=== PATIENT | male | born 1960 | race Caucasian/White ===

== ENCOUNTER 2016-06-12 02:20 | Observation (INO) | payer MEDICARE, MEDICAID ==
[2016-06-12] MEDS ORDERED: METHYLPREDNISOLONE INJ 125 MG/2 ML SDV IV ONE (02:39)
--- NOTE | 2016-06-12 03:00 | ER Document Report ---
ED General - General Mode of Arrival: Medic Information source: Patient, Emergency Med Personnel TRAVEL OUTSIDE OF THE [place] IN LAST 30 DAYS: No - HPI Patient complains to provider of: Swelling to the left cheek, upper lip, and tongue Onset: Just prior to arrival Associated symptoms: Other - see above <TIFFANIE FRAZIER - Last Filed: 06/12/16 03:48> <ALEXIS CELESTE - Last Filed: 06/12/16 07:38> <ANGELO BROCK - Last Filed: 06/18/16 02:08> - General Chief Complaint: Facial Swelling Stated Complaint: LIP,CHEEK SWELLING Notes: 56 year old male with history of a stroke and hypertension presents to the ED via EMS after having swelling to the left cheek, upper lip, and tongue that started just prior to arrival. EMS states that the patient's symptoms started at approximately 0200. Patient was at 99% on room air. Patient is on Lisinopril 10mg and states that he has been taking it for a while now. Patient additionally states that he has a itching sensation, but it is chronic. A comprehensive HPI is unobtainable secondary to the patient's inability to talk coherently. (TIFFANIE FRAZIER) - Related Data Allergies/Adverse Reactions: lisinopril Allergy (Verified 06/12/16 19:26) Angioneurotic Edema Home Medications: Current Home Medications Acetaminophen [Tylenol Extra Strength 500 mg Tablet] 500 mg PO Q4HP PRN [History] Chlorhexidine Gluconate [Periogard 0.12% Oral Rinse 15 ml] 10 ml PO TIDHS PRN [History] Cyclobenzaprine HCl [Flexeril 10 mg Tablet] 10 mg PO TID 06/12/16 [History] Escitalopram Oxalate [Lexapro 10 mg Tablet] 10 mg PO DAILY 06/12/16 [History] Felodipine [Felodipine ER] 10 mg PO DAILY 06/12/16 [History] Guaifenesin [Robitussin Syrup 200 mg/10 ml Ud Cup] 10 ml PO HSP PRN 06/12/16 [ History] Loperamide HCl [Loperamide] 2 mg PO QIDP PRN 06/12/16 [History] Magnesium Hydroxide [Milk of Magnesia 30 ml Udcup] 30 ml PO HSP PRN 06/12/16 [ History] Meloxicam [Mobic 7.5 mg Tablet] 7.5 mg PO DAILY 06/12/16 [History] Methylphenidate HCl [Methylphenidate ER] 10 mg PO DAILY 06/12/16 [History] Neomycin Ramirez/Bacitrac Zn/Poly [Triple Antibiotic Ointment] 1 applic TOP DAILYP PRN 06/12/16 [History] Omeprazole 20 mg PO DAILY 06/12/16 [History] Simvastatin [Zocor 20 mg Tablet] 60 mg PO QHS 06/12/16 [History] Past Medical History - General Information source: Patient - Social History Smoking Status: Current Every Day Smoker Family History: Reviewed & Not Pertinent Patient has suicidal ideation: No - Past Medical History Cardiac Medical History: Reports: Hx Hypertension Neurological Medical History: Reports: Hx Cerebrovascular Accident, Hx Seizures Surgical Hx: Negative <TIFFANIE FRAZIER - Last Filed: 06/12/16 03:48> Review of Systems - Review of Systems Constitutional: No symptoms reported EENT: No symptoms reported Cardiovascular: No symptoms reported Respiratory: No symptoms reported Gastrointestinal: No symptoms reported Genitourinary: No symptoms reported Male Genitourinary: No symptoms reported Musculoskeletal: No symptoms reported Skin: See HPI, Other - swelling to the left cheek, upper lip, and tongue. Hematologic/Lymphatic: No symptoms reported Neurological/Psychological: No symptoms reported -: Yes All other systems reviewed and negative <TIFFANIE FRAZIER - Last Filed: 06/12/16 03:48> Physical Exam - General General appearance: Alert In distress: None - HEENT Head: Normocephalic, Atraumatic Eyes: Normal Extraocular movements intact: Yes Pupils: PERRL Mouth/Lips: Angioedema - left greater than right. No: Normal - Respiratory Respiratory status: No respiratory distress Breath sounds: Normal - Cardiovascular Rhythm: Regular Heart sounds: Normal auscultation - Abdominal Inspection: Normal - Back Back: Normal - Extremities General upper extremity: Normal inspection, Normal ROM General lower extremity: Normal inspection, Normal ROM - Neurological Neuro grossly intact: Yes Cognition: Normal Orientation: AAOx4 [place] Coma Scale Eye Opening: Spontaneous [place] Coma Scale Verbal: Oriented Anu Coma Scale Motor: Obeys Commands [place] Coma Scale Total: 15 Speech: Normal - Psychological Associated symptoms: Normal affect, Normal mood - Skin Skin Temperature: Warm Skin Moisture: Dry Skin Color: Normal <TIFFANIE FRAZIER - Last Filed: 06/12/16 03:48> <ALEXIS CELESTE - Last Filed: 06/12/16 07:38> - HEENT Pharynx: Normal. No: Erythema, Exudate, Tonsillar hypertrophy <ANGELO BROCK - Last Filed: 06/18/16 02:08> - Vital signs Vitals: Resp BP Pulse Ox 16 147/96 H 94 06/12/16 02:30 06/12/16 02:30 06/12/16 02:30 (ALEXIS CELESTE) (ANGELO BROCK) Course <TIFFANIE FRAZIER - Last Filed: 06/12/16 03:48> <ALEXIS CELESTE - Last Filed: 06/12/16 07:38> - Laboratory Result Diagrams: 06/12/16 08:40 06/12/16 08:40 <ANGELO BROCK - Last Filed: 06/18/16 02:08> - Re-evaluation Re-evalutation: Patient was checked out to me by Dr. Brock with the plan that we would monitor him for 4 hours. If his edema did not worsened and he could go home. She informed me that he initially only has edema to the left upper lip and some to left face. Reevaluation patient's now has some edema across the entire upper lip. Also has slight edema over the left lower lip. The nurse does say that this does appear worse than what it was before. Yhe edema is actually worsening and not improving think it's appropriate to admit the patient. I will give the patient fresh frozen plasma being that this is most likely RICARDO inhibitor, bradycardia, and induced angioedema. He does not have any pharyngeal involvement. No evidence of impending airway compromise. He is handling secretions fine and has no stridor or difficulty breathing. I do not think he requires prophylactic intubation at this time. 06/12/16 06:18 (ALEXIS CELESTE) 06/12/16 03:55 Patient is a 56-year-old male who comes in with angioedema of his upper lip. L>R , likely from his lisinopril. No involvement of his tongue or oropharynx. Patient has been monitored here in the emergency department for the last hour and half and his symptoms have not gotten worse. Patient is signed out to Dr. Celeste at 0400 with stable angioedema. He is to stop taking lisinopril. (ANGELO BROCK) - Vital Signs Vital signs: Temp Pulse Resp BP Pulse Ox 97.9 F 100 19 143/83 H 94 06/13/16 07:45 06/13/16 07:45 06/13/16 07:45 06/13/16 07:45 06/13/16 10:18 (ALEXIS CELESTE) (ANGELO BROCK) - Transfer of Care Notes: 06/12/16 07:39 I spoke with the hospitalist, Dr. Tang, who agrees come evaluate the patient for admission. (ALEXIS CELESTE) Discharge <TIFFANIE FRAZIER - Last Filed: 06/12/16 03:48> - Discharge Admitting Provider: Hospitalist <ALEXIS CELESTE - Last Filed: 06/12/16 07:38> - Discharge Admitting Provider: Hospitalist Unit Admitted: IMCU <ANGELO BROCK - Last Filed: 06/18/16 02:08> - Discharge Clinical Impression: Angioedema Qualifiers: Encounter type: initial encounter Qualified Code(s): T78.3XXA - Angioneurotic edema, initial encounter Condition: Good Disposition: ADMITTED OBSERVATION Scribe Attestation: 06/18/16 02:07 I personally performed the services described in the documentation, reviewed and edited the documentation which was dictated to the scribe in my presence, and it accurately records my words and actions. (ANGELO BROCK) Scribe Documentation - Scribe Written by Scribyung:: Aj Espino, 06/12/2015 03:32 acting as scribe for :: Usha <TIFFANIE FRAZIER - Last Filed: 06/12/16 03:48>
[2016-06-12] MEDS ORDERED: NORMAL SALINE 250 ML IV PRN (06:16)
[2016-06-12] MEDS ORDERED: ACETAMINOPHEN 325 MG TABLET PO PRN (08:06)
[2016-06-12] MEDS ORDERED: ONDANSETRON HCL INJ/PF 4 MG/2 ML SDV IV PRN (08:12)
[2016-06-12] MEDS ORDERED: DIPHENHYDRAMINE HCL 50 MG/ML VIAL IV STA (08:13)
[2016-06-12] MEDS ORDERED: METHYLPREDNISOLONE INJ 40 MG/1 ML SDV IV SCH (08:15)
[2016-06-12] MEDS ORDERED: FAMOTIDINE INJ/PF 20 MG/2 ML SDV IV ONE (08:30)
[2016-06-12] MEDS ORDERED: METHYLPREDNISOLONE INJ 40 MG/1 ML SDV IV ONE (08:30)
[2016-06-12 09:03] LABS: ABSOLUTE MONOCYTES (AUTO) 0.1 10^3/uL (0.1-1.4); ABSOLUTE NEUT (AUTO) 8.8 10^3/uL (1.7-8.2); BASOPHILS % (AUTO) 0.3 % (0-2); EOSINOPHILS % (AUTO) 0.4 % (0-6); HEMATOCRIT 45.5 % (37.9-51.0); HEMOGLOBIN 14.8 g/dL (13.5-17.0); HGB HCT DIFFERENCE -1.1; LYMPHOCYTES % (AUTO) 9.8 % (13-45); MEAN CORPUSCULAR HEMOGLOBIN 30.5 pg (27.0-33.4); MEAN CORPUSCULAR HGB CONC 32.6 g/dL (32.0-36.0); MEAN CORPUSCULAR VOLUME 94 fl (80-97); MONOCYTES % (AUTO) 1.2 % (3-13); RED BLOOD COUNT 4.86 10^6/uL (4.35-5.55); RED CELL DISTRIBUTION WIDTH 12.6 % (11.5-14.0); SEGMENTED NEUTROPHILS % (AUTO) 88.3 % (42-78)
[2016-06-12] MEDS: NORMAL SALINE 1000 ML 1,000 ML IV PRN (09:14)
[2016-06-12 09:20] LABS: ANION GAP 11 (5-19); BLOOD UREA NITROGEN 11 mg/dL (7-20); CALCIUM 10.4 mg/dL (8.4-10.2); CARBON DIOXIDE 29 mmol/L (22-30); CHLORIDE 99 mmol/L (98-107); CREATININE RESULT 0.88 mg/dL (0.52-1.25); GLUCOSE 144 mg/dL (75-110); POTASSIUM 5.5 mmol/L (3.6-5.0); SODIUM 138.8 mmol/L (137-145)
[2016-06-12] MEDS ORDERED: METHYLPHENIDATE HCL 10 MG PO SCH (13:45)
--- NOTE | 2016-06-12 13:53 | PDOC H&P ---
History of Present Illness Admission Date/PCP: 06/12/16 08:08 Patient complains of: Lip swelling History of Present Illness: VAMSI VILLAFUERTE is a 56 year old male with history of a stroke with right hemiplegia and dysarthria and hypertension presents to the ED via EMS after having swelling to the left cheek, upper lip, and tongue that started just prior to arrival. EMS states that the patient's symptoms started at approximately 0200. Patient was at 99% on room air. Patient is on Lisinopril 10mg and states that he has been taking it for a while now. Patient additionally states that he has a itching sensation, but it is chronic. He denies drooling or difficulty swallowing, wheezing, dyspnea, numbness tingling, chest pain. He was given a single dose Solu-Medrol 125 mg in the emergency department with the intent of sending him back to the facility however his lip swelling worsened and we were asked to admit for continued treatment and observation. Past Medical History Cardiac Medical History: Reports: Hypertension Pulmonary Medical History: Reports: None Neurological Medical History: Reports: Ischemic CVA - With right hemiplegia and dysarthria, Seizures Past Surgical History Past Surgical History: Reports: Orthopedic Surgery Social History Information Source: Patient Lives with: Retirement Smoking Status: Current Every Day Smoker - Advance Directive Resuscitation Status: Do Not Resuscitate Family History Family History: Reviewed & Not Pertinent Parental Family History Reviewed: Yes Children Family History Reviewed: Yes Sibling(s) Family History Reviewed.: Yes Medication/Allergy Home Medications: Acetaminophen [Tylenol Extra Strength 500 mg Tablet] 500 mg PO Q4HP PRN Chlorhexidine Gluconate [Periogard 0.12% Oral Rinse 15 ml] 10 ml PO TIDHS PRN Cyclobenzaprine HCl [Flexeril 10 mg Tablet] 10 mg PO TID 06/12/16 Escitalopram Oxalate [Lexapro 10 mg Tablet] 10 mg PO DAILY 06/12/16 Felodipine [Felodipine ER] 10 mg PO DAILY 06/12/16 Guaifenesin [Robitussin Syrup 200 mg/10 ml Ud Cup] 10 ml PO HSP PRN 06/12/16 Lisinopril [Prinivil 10 mg Tablet] 10 mg PO DAILY 06/12/16 Loperamide HCl [Loperamide] 2 mg PO QIDP PRN 06/12/16 Magnesium Hydroxide [Milk of Magnesia 30 ml Udcup] 30 ml PO HSP PRN 06/12/16 Meloxicam [Mobic 7.5 mg Tablet] 7.5 mg PO DAILY 06/12/16 Methylphenidate HCl [Methylphenidate ER] 10 mg PO DAILY 06/12/16 Neomycin Ramirez/Bacitrac Zn/Poly [Triple Antibiotic Ointment] 1 applic TOP DAILYP PRN 06/12/16 Omeprazole 20 mg PO DAILY 06/12/16 Simvastatin [Zocor 20 mg Tablet] 60 mg PO QHS 06/12/16 Allergies/Adverse Reactions: No Known Allergies Allergy (Unverified 06/12/16 06:52) Review of Systems All systems: reviewed and no additional remarkable complaints except as stated - Items noted in history of present illness Constitutional: PRESENT: as per HPI Eyes: ABSENT: visual disturbances Nose, Mouth, and Throat: PRESENT: as per HPI Cardiovascular: ABSENT: chest pain, dyspnea on exertion, edema, orthropnea, palpitations Respiratory: ABSENT: cough, hemoptysis Gastrointestinal: ABSENT: abdominal pain, constipation, diarrhea, hematemesis, hematochezia, nausea, vomiting Genitourinary: ABSENT: difficulty urinating Neurological: PRESENT: as per HPI Hematologic/Lymphatic: ABSENT: easy bleeding, easy bruising Physical Exam Vital Signs: Temp Pulse Resp BP Pulse Ox 97.9 F 27 H 139/91 H 98 06/12/16 08:08 06/12/16 09:01 06/12/16 08:01 06/12/16 09:01 General appearance: PRESENT: no acute distress, well-developed, well-nourished Head exam: PRESENT: atraumatic, normocephalic Eye exam: PRESENT: conjunctiva pink, EOMI, PERRLA. ABSENT: scleral icterus Mouth exam: PRESENT: tongue midline - And not swollen, other - Upper lip swollen to 3 times its normal size; left buccal mucosa and also swollen to twice its normal size Throat exam: PRESENT: other - No drooling or difficulty with secretions. ABSENT : post pharyngeal erythema, tonsillar erythema, tonsillar exudate Neck exam: PRESENT: other - No stridor. ABSENT: carotid bruit, JVD, lymphadenopathy, tenderness, tracheal deviation Respiratory exam: PRESENT: clear to auscultation yolis. ABSENT: rales, rhonchi, wheezes Cardiovascular exam: PRESENT: RRR. ABSENT: diastolic murmur, rubs, systolic murmur Pulses: PRESENT: normal carotid pulses, normal radial pulses Vascular exam: PRESENT: normal capillary refill GI/Abdominal exam: PRESENT: normal bowel sounds, soft. ABSENT: distended, guarding, rebound, tenderness Extremities exam: ABSENT: full ROM - Right arm and leg weakness chronic Musculoskeletal exam: ABSENT: ambulatory Neurological exam: PRESENT: alert, awake, oriented to person, oriented to place , oriented to situation, other - Dysarthria Psychiatric exam: PRESENT: appropriate affect, normal mood Skin exam: PRESENT: dry, warm Results Laboratory Results: 06/12/16 08:40 06/12/16 08:40 06/12/16 06/12/16 08:40 08:40 WBC 10.0 RBC 4.86 Hgb 14.8 Hct 45.5 MCV 94 MCH 30.5 MCHC 32.6 RDW 12.6 Plt Count 552 H Seg Neutrophils % 88.3 H Lymphocytes % 9.8 L Monocytes % 1.2 L Eosinophils % 0.4 Basophils % 0.3 Absolute Neutrophils 8.8 H Absolute Lymphocytes 1.0 Absolute Monocytes 0.1 Absolute Eosinophils 0.0 Absolute Basophils 0.0 Sodium 138.8 Potassium 5.5 H Chloride 99 Carbon Dioxide 29 Anion Gap 11 BUN 11 Creatinine 0.88 Est GFR ( Amer) > 60 Est GFR (Non-Af Amer) > 60 Glucose 144 H Calcium 10.4 H Magnesium 2.0 Assessment & Plan - Diagnosis (1) Angioedema Qualifiers: Encounter type: initial encounter Qualified Code(s): T78.3XXA - Angioneurotic edema, initial encounter Is this a current diagnosis for this admission?: YesPlan: Admit to IMCU for close dynamic monitoring. Schedule systemic steroids, Benadryl , famotidine to genao off secondary to histamine reaction. (2) CVA (cerebral vascular accident) Qualifiers: CVA mechanism: unspecified Qualified Code(s): I63.9 - Cerebral infarction, unspecified Is this a current diagnosis for this admission?: YesPlan: Chronic right hemiplegia and dysarthria unchanged (3) Essential hypertension Is this a current diagnosis for this admission?: YesPlan: Continue home regimen except the lisinopril. - Time Time Spent: 50 to 70 Minutes Medications reviewed and adjusted accordingly: Yes Anticipated discharge: SNF Within: within 24 hours
[2016-06-12] MEDS: DIPHENHYDRAMINE HCL 50 MG/ML VIAL IV SCH ×2 (14:52→21:00)
[2016-06-12] MEDS ORDERED: AMLODIPINE BESYLATE 5 MG TABLET PO ONE (16:00)
[2016-06-12] MEDS: METHYLPREDNISOLONE INJ 40 MG/1 ML SDV IV SCH ×2 (16:03→22:20)
[2016-06-12] MEDS ORDERED: SIMVASTATIN 60 MG PO SCH (22:00)
[2016-06-12] MEDS ORDERED: SIMVASTATIN 10 MG TABLET PO SCH (22:00)
[2016-06-12] MEDS: CYCLOBENZAPRINE HCL 10 MG TABLET PO SCH (22:18)
[2016-06-12] MEDS: FAMOTIDINE INJ/PF 20 MG/2 ML SDV IV SCH (22:21)
[2016-06-13] MEDS: NORMAL SALINE 1000 ML 1,000 ML IV PRN (00:37)
[2016-06-13] MEDS: DIPHENHYDRAMINE HCL 50 MG/ML VIAL IV SCH ×2 (03:16→09:29)
[2016-06-13] MEDS: CYCLOBENZAPRINE HCL 10 MG TABLET PO SCH (06:41)
[2016-06-13] MEDS: METHYLPREDNISOLONE INJ 40 MG/1 ML SDV IV SCH (06:41)
[2016-06-13] MEDS ORDERED: ENOXAPARIN SODIUM INJ 40 MG/0.4 ML DISP.SYRIN SUBCUT SCH (08:00)
[2016-06-13 08:02] VITALS: BP 143/83
[2016-06-13] MEDS: FAMOTIDINE INJ/PF 20 MG/2 ML SDV IV SCH (09:29)
[2016-06-13] MEDS ORDERED: LANSOPRAZOLE 15 MG TAB.RAP.DR PO SCH (10:00)
[2016-06-13] MEDS ORDERED: (PENDING PHARMACY ID) (Felodipine [Felodipine Er] 10 MG) PO SCH (10:00)
[2016-06-13] MEDS ORDERED: DIPHENHYDRAMINE HCL 50 MG CAPSULE PO ONE (10:00)
[2016-06-13] MEDS ORDERED: AMLODIPINE BESYLATE 5 MG TABLET PO SCH (10:00)
[2016-06-13] MEDS ORDERED: ESCITALOPRAM OXALATE 10 MG TABLET PO SCH (10:00)
--- NOTE | 2016-06-13 10:38 | PDOC DISCHARGE SUMMARY ---
General - Admit/Disc Date/PCP Admission Date/Primary Care Provider: 06/12/16 08:08 Discharge Date: 06/13/16 - Discharge Diagnosis (1) Angioedema Is this a current diagnosis for this admission?: YesSummary: Markedly improved with no airway compromise, eating and drinking without difficulty. Still mild swelling of his upper lip but markedly improved and likely will continue to recede with ongoing treatment back at the facility. Stable for discharge at this time. (2) CVA (cerebral vascular accident) Is this a current diagnosis for this admission?: YesSummary: No change from baseline. Resume activity as previous (3) Essential hypertension Is this a current diagnosis for this admission?: YesSummary: Reasonably well-controlled continue home regimen. - Additional Information Resuscitation Status: Do Not Resuscitate Discharge Diet: As Tolerated Discharge Activity: Activity As Tolerated - resume previous activity Home Medications: Acetaminophen [Tylenol Extra Strength 500 mg Tablet] 500 mg PO Q4HP PRN Chlorhexidine Gluconate [Periogard 0.12% Oral Rinse 15 ml] 10 ml PO TIDHS PRN Cyclobenzaprine HCl [Flexeril 10 mg Tablet] 10 mg PO TID 06/12/16 Escitalopram Oxalate [Lexapro 10 mg Tablet] 10 mg PO DAILY 06/12/16 Felodipine [Felodipine ER] 10 mg PO DAILY 06/12/16 Guaifenesin [Robitussin Syrup 200 mg/10 ml Ud Cup] 10 ml PO HSP PRN 06/12/16 Loperamide HCl [Loperamide] 2 mg PO QIDP PRN 06/12/16 Magnesium Hydroxide [Milk of Magnesia 30 ml Udcup] 30 ml PO HSP PRN 06/12/16 Meloxicam [Mobic 7.5 mg Tablet] 7.5 mg PO DAILY 06/12/16 Methylphenidate HCl [Methylphenidate ER] 10 mg PO DAILY 06/12/16 Neomycin Ramirez/Bacitrac Zn/Poly [Triple Antibiotic Ointment] 1 applic TOP DAILYP PRN 06/12/16 Omeprazole 20 mg PO DAILY 06/12/16 Simvastatin [Zocor 20 mg Tablet] 60 mg PO QHS 06/12/16 Diphenhydramine HCl [Benadryl 50 mg Capsule] 1 cap PO Q6HP PRN #14 capsule 06/13 Famotidine [Pepcid 20 mg Tablet] 20 mg PO BID #12 tablet 06/13/16 Prednisone 20 mg PO BID #10 tablet 06/13/16 History of Present Illness Patient complains of: Swelling History of Present Illness: VAMSI VILLAFUERTE is a 56 year old male with history of a stroke with right hemiplegia and dysarthria and hypertension presents to the ED via EMS after having swelling to the left cheek, upper lip, and tongue that started just prior to arrival. EMS states that the patient's symptoms started at approximately 0200. Patient was at 99% on room air. Patient is on Lisinopril 10mg and states that he has been taking it for a while now. Patient additionally states that he has a itching sensation, but it is chronic. He denies drooling or difficulty swallowing, wheezing, dyspnea, numbness tingling, chest pain. He was given a single dose Solu-Medrol 125 mg in the emergency department with the intent of sending him back to the facility however his lip swelling worsened and we were asked to admit for continued treatment and observation. Hospital Course Hospital Course: He dramatically improved with the treatment noted above never showed any signs of airway compromise, no drooling, no stridor or hypoxia, no difficulty swallowing and has tolerated liquids and meals without difficulty. He is showing some facial flushing from the high-dose steroids given but that should recede as the steroids are tapered off. He appears to be at his baseline and is stable for discharge home at this time. He should continue a course of systemic steroids and H2 kei therapy with when necessary H1 kei therapy. He should follow up with his primary care provider in one week to confirm resolution. He should remain off ricardo inhibitors and ARB's for the for stable future. We'll defer to his primary care provider regarding further titration of his antihypertensive regimen. Physical Exam Vital Signs: Temp Pulse Resp BP Pulse Ox 97.9 F 100 19 143/83 H 94 06/13/16 07:45 06/13/16 07:45 06/13/16 07:45 06/13/16 07:45 06/13/16 10:18 Pulse Oximeter Continuous Start: 06/12/16 08: 19 Freq: RTQ4 Status: Complete Document 06/13/16 10:18 [facility] [place]: 06/13/16 10:19 [email or web address] [email or web address]) Pulse Oximetry Assessment Oxygen Saturation (92-100) 94 Oxygen Delivery Method Room Air Fraction of Inspired Oxygen (FIO2) 21 Equipment Usage Equipment Discontinued Continuous SpO2 Machine # N 1 Additional RT Notes Other pt discharging Intake & Output 06/12/16 06/13/16 06/14/16 06:59 06:59 06:59 Intake Total 1739 Output Total 1050 Balance 689 Weight 74 kg EXAM GENERAL: NAD; well developed, well nourished; no obese; alert and oriented to person, place, time, situation HEENT: normocephalic, atraumatic; no conjunctival injection, no scleral icterus ; oral mucosa moist; upper lip remains swollen to about half again is normal size, the buccal mucosa swelling has resolved, no posterior oropharyngeal swelling, no stridor RESPIRATORY: no accessory muscle use, no increased WOB, good air entry bilaterally; no wheezes, rales, rhonchi; no inspiratory crackles CARDIO: no JVD; RRR; no systolic murmur; no tachycardia GI: soft; nondistended; normal bowel sounds; no hepato spleno megaly; no rebound, rigidity, guarding VASCULAR: no carotid bruit; no abdominal bruit; no pallor; 2+ radial, DP pulse ; normal capillary refill EXTREMITIES: no calf tender; no palpable cords in calf; no clubbing, cyanosis , pedal edema PSYCH: normal affect, normal mood SKIN: warm; moist; no petechiae; no telengectasias; no jaundice; no rash Results Laboratory Results: 06/12/16 08:40 06/12/16 08:40 Qualifiers PATEINT BEING DISCHARGED WITH ANY OF THE FOLLOWING DIAGNOSIS?: No VTE patient discharged on overlapping Therapy?: Yes Plan Discharge Plan: Discharge back to assisted living follow-up with his primary care provider in one to 2 weeks, return to the emergency department for any recurrence or worsening of his symptoms. Time Spent: Greater than 30 Minutes
== END 2016-06-13 11:02 | disposition home health service (06) ==
LOC: ER 02:20 → EH 08:08 → UNDOADMOB 08:39 → EH 08:39 → 3N 23:22
PROVIDERS: ADMIT Internal Medicine; ATTEND Internal Medicine
PROC: 30233K1 Transfusion of Nonautologous Frozen Plasma into Peripheral Vein, Percutaneous Approach (ICD-10-PCS; principal; 2016-06-12)
DX: T78.3XXA Angioneurotic edema, initial encounter (principal); I69.351 Hemiplegia and hemiparesis following cerebral infarction affecting right dominant side; I69.322 Dysarthria following cerebral infarction; I10 Essential (primary) hypertension; F17.210 Nicotine dependence, cigarettes, uncomplicated
CPT/HCPCS: 96376; 99285; 96374; 96375; 86900; 86901; 36415; 36430; 86850; 83735; 85025; 80048; 94762; G0378 ×3; P9017; A9270 ×8; J1200 ×2; J2920 ×2; J2930; J3490; J7030 ×2; S0028

== ENCOUNTER → 2017-07-17 | Outpatient (CLI) | payer MEDICARE, MEDICAID ==
--- NOTE | 2017-07-18 09:31 | RADIOLOGY REPORT (SQ) ---
EXAM DESCRIPTION: MRI HEAD WITH COMPLETED DATE/TIME: 07/17/2017 6:46 pm REASON FOR STUDY: BLURRED VISION R93.0 ABNORMAL FINDINGS ON DX IMAGING OF SKULL AND HEAD, NEC COMPARISON: None. TECHNIQUE: Multiplanar imaging includes noncontrasted T1, T2, FLAIR, and Diffusion with ADC map seq uences. Contrast enhanced T1 images. Images stored on PACS. CONTRAST TYPE AND DOSE: 15 mL MultiHance RENAL FUNCTION: GFR > 60. LIMITATIONS: None. FINDINGS: ANATOMY: No anomalies. Normal vascular flow voids. Pituitary fossa normal. CSF SPACES: Normal size and contour. No hemorrhage. CEREBRUM: A few high-signal intensity lesions scattered throughout the white matter on FLAIR imaging with distribution suggesting chronic microvascular ischemic change. Sulci and gyri normal in size and contour. No evidence of hemorrhage, mass or extraaxial fluid collection. No enhancing lesions. POSTERIOR FOSSA: No signal alteration. No hemorrhage. No edema, masses or mass effect. There is foca l encephalomalacia in the right cerebellar hemisphere most consistent with an area of prior infarctio n. Internal auditory canals, cerebello-pontine angles, mastoids normal. DIFFUSION: Negative for acute or subacute infarction. ORBITS: No masses. Globes normal. PARANASAL SINUSES: Mucosal thickening is identified in the right maxillary antra OTHER: Retro-orbital fat and soft tissue planes are well preserved. No masses are identified. IMPRESSION: NO ENHANCING LESIONS. MINIMAL MICROVASCULAR ISCHEMIC CHANGE. Focal encephalomalacia in the right cerebellar hemisphere most consistent with an area of prior infarction. Other findings as noted above. EVIDENCE OF ACUTE STROKE: NO. TECHNICAL DOCUMENTATION: JOB ID: [id number] [employer]- All Rights Reserved Reading location - IP/workstation name: [facility]
== END ==
LOC: RAD 15:56
PROVIDERS: ATTEND Nurse Practitioner Acute Care
DX: R93.0 Abnormal findings on diagnostic imaging of skull and head, not elsewhere classified (principal); H53.8 Other visual disturbances; I10 Essential (primary) hypertension
CPT/HCPCS: 82565; 70552; A9577

== ENCOUNTER 2017-07-25 08:49 | Emergency (ER) | payer MEDICARE, MEDICAID ==
--- NOTE | 2017-07-25 09:13 | RADIOLOGY REPORT (SQ) ---
EXAM DESCRIPTION: CT HEAD WITHOUT COMPLETED DATE/TIME: 07/25/2017 9:00 am REASON FOR STUDY: STROKE ALERT COMPARISON: MRI dated 07/17/2017. TECHNIQUE: Axial images acquired through the brain without intravenous contrast. Images reviewed wi th bone, brain and subdural windows. Images stored on PACS. All CT scanners at this facility use dose modulation, iterative reconstruction, and/or weight based d osing when appropriate to reduce radiation dose to as low as reasonably achievable (ALARA). [facility]: Dose Right [facility]: CareDose [facility]: Dose Right [facility]: Teradose 4D [facility]: [employer] RADIATION DOSE: mGy. LIMITATIONS: None. FINDINGS: VENTRICLES: Normal size and contour. CEREBRUM: No masses. No hemorrhage. No midline shift. No evidence for acute infarction. Normal gra y/white matter differentiation. No areas of low density in the white matter. CEREBELLUM: No masses. No hemorrhage. Focal encephalomalacia in the right cerebellar hemisphere, un changed. No alteration of density. No evidence for acute infarction. EXTRAAXIAL SPACES: No fluid collections. No masses. ORBITS AND GLOBE: No intra- or extraconal masses. Normal contour of globe without masses. CALVARIUM: No fracture. PARANASAL SINUSES: No fluid or mucosal thickening. SOFT TISSUES: No mass or hematoma. OTHER: No other significant finding. IMPRESSION: FOCAL ENCEPHALOMALACIA IN THE RIGHT CEREBELLAR HEMISPHERE, UNCHANGED FROM PRIOR MRI. TH IS MAY BE DUE TO PREVIOUS INFARCT OR COULD BE SEQUELA OF TRAUMA. OTHERWISE UNREMARKABLE BRAIN CT WIT HOUT CONTRAST. NO ACUTE FINDINGS. EVIDENCE OF ACUTE STROKE: NO. COMMENT: Pertinent positive or negative findings of the imaging study reported as a CRITICAL EXAM t o ED STAFF at09:07 on 07/25/2017. Category of Critical Exam: Stroke protocol. Quality ID # [id number]: Final reports with documentation of one or more dose reduction techniques (e.g., Au tomated exposure control, adjustment of the mA and/or kV according to patient size, use of iterative reconstruction technique) TECHNICAL DOCUMENTATION: JOB ID: [id number] [employer]- All Rights Reserved Reading location - IP/workstation name: [email or web address]
--- NOTE | 2017-07-25 09:15 | RADIOLOGY REPORT (SQ) ---
EXAM DESCRIPTION: CHEST SINGLE VIEW COMPLETED DATE/TIME: 07/25/2017 9:05 am REASON FOR STUDY: STROKE ALERT COMPARISON: None. EXAM PARAMETERS: NUMBER OF VIEWS: One view. TECHNIQUE: Single frontal radiographic view of the chest acquired. RADIATION DOSE: NA LIMITATIONS: None. FINDINGS: LUNGS AND PLEURA: No opacities, masses or pneumothorax. Scattered calcified granulomas. No pleural effusion. MEDIASTINUM AND HILAR STRUCTURES: No masses. Contour normal. HEART AND VASCULAR STRUCTURES: Heart normal in size. Normal vasculature. BONES: No acute findings. HARDWARE: None in the chest. OTHER: No other significant finding. IMPRESSION: NO ACUTE RADIOGRAPHIC FINDING IN THE CHEST. TECHNICAL DOCUMENTATION: JOB ID: [id number] [employer]- All Rights Reserved Reading location - IP/workstation name: [email or web address]
[2017-07-25 09:19] LABS: ALANINE AMINOTRANSFERASE 47 U/L (21-72); ALBUMIN 4.9 g/dL (3.5-5.0); ALKALINE PHOSPHATASE 95 U/L (38-126); ANION GAP 11 (5-19); ASPARTATE AMINO TRANSFERASE 28 U/L (17-59); BILIRUBIN,DIRECT 0.3 mg/dL (0.0-0.4); BILIRUBIN,TOTAL 0.8 mg/dL (0.2-1.3); BLOOD UREA NITROGEN 16 mg/dL (7-20); CARBON DIOXIDE 30 mmol/L (22-30); CHLORIDE 95 mmol/L (98-107); GLUCOSE 98 mg/dL (75-110); POTASSIUM 4.3 mmol/L (3.6-5.0); SODIUM 135.7 mmol/L (137-145); TOTAL PROTEIN 7.6 g/dL (6.3-8.2)
[2017-07-25 09:23] LABS: ABSOLUTE BASOPHILS # (AUTO) 0.1 10^3/uL (0.0-0.2); ABSOLUTE LYMPHOCYTES (AUTO) 2.5 10^3/uL (0.5-4.7); ABSOLUTE MONOCYTES (AUTO) 0.9 10^3/uL (0.1-1.4); ABSOLUTE NEUT (AUTO) 10.2 10^3/uL (1.7-8.2); BASOPHILS % (AUTO) 0.4 % (0-2); EOSINOPHILS % (AUTO) 0.2 % (0-6); HEMOGLOBIN 13.9 g/dL (13.5-17.0); LYMPHOCYTES % (AUTO) 18.4 % (13-45); MEAN CORPUSCULAR HEMOGLOBIN 31.9 pg (27.0-33.4); MEAN CORPUSCULAR VOLUME 94 fl (80-97); MONOCYTES % (AUTO) 6.8 % (3-13); PLATELET COUNT 474 10^3/uL (150-450); RED BLOOD COUNT 4.37 10^6/uL (4.35-5.55); RED CELL DISTRIBUTION WIDTH 13.3 % (11.5-14.0); SEGMENTED NEUTROPHILS % (AUTO) 74.2 % (42-78); TOTAL CELLS COUNTED % (AUTO) 100 %; WHITE BLOOD COUNT 13.8 10^3/uL (4.0-10.5)
[2017-07-25 09:28] LABS: INTERNATIONAL RATION (INR) 0.79; PROTHROMBIN TIME 11.5 SEC (11.4-15.4)
--- NOTE | 2017-07-25 09:50 | ER Document Report ---
ED General - General Chief Complaint: S/S of Possible Stroke Stated Complaint: STROKE ALERT Time Seen by Provider: 07/25/17 08:57 Mode of Arrival: Medic Information source: Patient, Emergency Med Personnel Notes: 57-year-old male with a history of hypertension, hypercholesterolemia and previous CVA presents via EMS from a nursing facility after nursing staff noticed the patient to have significantly slurred speech. Change in speech was witnessed at 8:15 AM. Patient has associated headache but denies vision changes , nausea, vomiting, chest pain, shortness of breath, abdominal pain. Last CVA was in 2004 which patient states left him with right-sided deficits. EMS reports patient usually has a baseline of normal speech. Has had no intracranial hemorrhage, recent surgery, and is not on any anticoagulation medication. TRAVEL OUTSIDE OF THE [place] IN LAST 30 DAYS: No - HPI Onset: Just prior to arrival Onset/Duration: Sudden Quality of pain: Achy Pain Level: 1 Associated symptoms: Headache. denies: Nausea, Vomiting, Weakness Exacerbated by: Denies Relieved by: Denies Similar symptoms previously: Yes - Previous CVA in 2004 Recently seen / treated by doctor: No - Related Data Allergies/Adverse Reactions: lisinopril Allergy (Verified 07/25/17 09:33) Angioneurotic Edema Past Medical History - General Information source: Patient, Emergency Med Personnel Cannot obtain history due to: Other - severe slurred speech - Social History Smoking Status: Former Smoker Cigarette use (# per day): No Smoking Education Provided: No Frequency of alcohol use: None Drug Abuse: None Lives with: [facility] Family History: Reviewed & Not Pertinent, CVA, Hyperlipidemia, Hypertension Patient has suicidal ideation: No Patient has homicidal ideation: No - Past Medical History Cardiac Medical History: Reports: Hx Hypertension Neurological Medical History: Reports: Hx Cerebrovascular Accident, Hx Seizures Renal/ Medical History: Denies: Hx Peritoneal Dialysis Past Surgical History: Reports: Hx Orthopedic Surgery - Immunizations Hx Pneumococcal Vaccination: 02/16/14 Review of Systems - Review of Systems Constitutional: denies: Fever, Weakness EENT: No symptoms reported Cardiovascular: No symptoms reported Respiratory: No symptoms reported Gastrointestinal: No symptoms reported Genitourinary: No symptoms reported Neurological/Psychological: Speech impairment Physical Exam - Vital signs Vitals: Resp Pulse Ox 15 97 07/25/17 09:10 07/25/17 09:10 Interpretation: Normal - General General appearance: Appears well, Alert In distress: None - Respiratory Respiratory status: No respiratory distress Chest status: Nontender Breath sounds: Normal Chest palpation: Normal - Cardiovascular Rhythm: Regular Heart sounds: Normal auscultation Murmur: No - Neurological Neuro grossly intact: No Cognition: Normal Orientation: AAOx4 [place] Coma Scale Eye Opening: Spontaneous Anu Coma Scale Verbal: Oriented [place] Coma Scale Motor: Obeys Commands [place] Coma Scale Total: 15 Speech: Dysarthria Cranial nerves: Normal. No: Facial palsy, Sensory deficit Cerebellar coordination: Finger-nose rhombey Additional motor exam normals: Equal grocery sacker Sensory: Normal Course - Re-evaluation Re-evalutation: 07/25/17 09:43 87-year-old male with a history of CVA presents via EMS after nursing facility noticed significant slurred speech. Patient last known well at 8:15 AM. Arrived in ED at 9:40 AM. NIH scale was performed and 3 for right upper extremity ataxia and significant dysarthria. CT of the head was negative. [facility] was contacted and I did speak to the neurologist who is requesting CT of the head be pushed over for his review. 07/25/17 10:[address] Forrester neurologist for [facility], he advises transfer to their facility with administration of TPA prior to transfer. Recommended dose is 7.2 mg over 1 minutes with 64.8 mg over 1 hour. TPA was started prior to transfer. He remained stable throughout his ED course. He was transferred via [facility]. 07/25/17 20:26 Laboratory 07/25/17 07/25/17 07/25/17 08:42 09:10 09:10 WBC 13.8 H RBC 4.37 Hgb 13.9 Hct 41.0 MCV 94 MCH 31.9 MCHC 34.0 RDW 13.3 Plt Count 474 H Seg Neutrophils % 74.2 Lymphocytes % 18.4 Monocytes % 6.8 Eosinophils % 0.2 Basophils % 0.4 Absolute Neutrophils 10.2 H Absolute Lymphocytes 2.5 Absolute Monocytes 0.9 Absolute Eosinophils 0.0 Absolute Basophils 0.1 PT 11.5 INR 0.79 APTT 27.0 Sodium 135.7 L Potassium 4.3 Chloride 95 L Carbon Dioxide 30 Anion Gap 11 BUN 16 Creatinine 0.77 Est GFR ( Amer) > 60 Est GFR (Non-Af Amer) > 60 Glucose 98 Calcium 10.0 Total Bilirubin 0.8 Direct Bilirubin 0.3 Neonat Total Bilirubin Not Reportable Neonat Direct Bilirubin Not Reportable Neonat Indirect Bili Not Reportable AST 28 ALT 47 Alkaline Phosphatase 95 Creatine Kinase CK-MB (CK-2) Troponin I Total Protein 7.6 Albumin 4.9 07/25/17 07/25/17 09:10 09:10 WBC RBC Hgb Hct MCV MCH MCHC RDW Plt Count Seg Neutrophils % Lymphocytes % Monocytes % Eosinophils % Basophils % Absolute Neutrophils Absolute Lymphocytes Absolute Monocytes Absolute Eosinophils Absolute Basophils PT INR APTT Sodium Potassium Chloride Carbon Dioxide Anion Gap BUN Creatinine Est GFR ( Amer) Est GFR (Non-Af Amer) Glucose Calcium Total Bilirubin Direct Bilirubin Neonat Total Bilirubin Neonat Direct Bilirubin Neonat Indirect Bili AST ALT Alkaline Phosphatase Creatine Kinase 40 L CK-MB (CK-2) 1.53 Troponin I < 0.012 Total Protein Albumin Chest X-Ray 07/25/17 00:00 IMPRESSION: NO ACUTE RADIOGRAPHIC FINDING IN THE CHEST. Head CT 07/25/17 00:00 IMPRESSION: FOCAL ENCEPHALOMALACIA IN THE RIGHT CEREBELLAR HEMISPHERE, UNCHANGED FROM PRIOR MRI. THIS MAY BE DUE TO PREVIOUS INFARCT OR COULD BE SEQUELA OF TRAUMA. OTHERWISE UNREMARKABLE BRAIN CT WITHOUT CONTRAST. NO ACUTE FINDINGS. EVIDENCE OF ACUTE STROKE: NO. Head MRI 07/25/17 09:13 IMPRESSION: 1. SEVERAL AREAS OF RESTRICTED DIFFUSION IN THE LEFT CEREBRAL HEMISPHERE. THE PATTERN OF INVOLVEMENT SUGGESTS THAT THESE ARE PROBABLY RELATED TO EMBOLI FROM A PROXIMAL SOURCE OPPOSED TO A REGIONAL VESSEL OCCLUSION. INVOLVEMENT OF THE LEFT OCCIPITAL LOBE COULD CORRELATE WITH THE PATIENT'S COMPLAINT OF VISUAL PROBLEMS AT THE TIME OF THE PREVIOUS MRI (07/17/2017). INVOLVEMENT OF THE LEFT POSTERIOR PARIETAL/TEMPORAL LOBE COULD CORRELATE WITH THE PATIENT'S CURRENT COMPLAINT OF SPEECH DIFFICULTY. 2. OLD ENCEPHALOMALACIA INVOLVING THE RIGHT CEREBELLAR HEMISPHERE, PRESUMED DUE TO AN OLD INFARCT. 3. NO OTHER SIGNIFICANT FINDINGS. EVIDENCE OF ACUTE STROKE: YES. LEFT MCA AND LEFT DATABASE SECURITY EXPERT. - Vital Signs Vital signs: Temp Pulse Resp BP Pulse Ox 98.1 F 77 12 157/84 H 100 07/25/17 09:30 07/25/17 10:00 07/25/17 10:00 07/25/17 10:00 07/25/17 10:00 - Laboratory Result Diagrams: 07/25/17 09:10 07/25/17 08:42 Laboratory results interpreted by me: 07/25/17 07/25/17 07/25/17 08:42 09:10 09:10 WBC 13.8 H Plt Count 474 H Absolute Neutrophils 10.2 H Sodium 135.7 L Chloride 95 L Creatine Kinase 40 L Discharge - Discharge Clinical Impression: CVA (cerebral vascular accident) Condition: Critical Disposition: Community Health Referrals: MYA MIRANDA, HORSE IDENTIFIER [Primary Care Provider] - Follow up as needed
[2017-07-25] MEDS ORDERED: ALTEPLASE INJ 100 MG VIAL ONE (09:57)
[2017-07-25 10:06] LABS: CREATINE KINASE MB 1.53 ng/mL (<4.55)
[2017-07-25] MEDS ORDERED: ALTEPLASE INJ 100 MG VIAL IV ONE (10:10)
[2017-07-25 10:14] LABS: TROPONIN I < 0.012 ng/mL
[2017-07-25 10:21] VITALS: BP 157/84
--- NOTE | 2017-07-25 10:23 | RADIOLOGY REPORT (SQ) ---
EXAM DESCRIPTION: MRI HEAD WITHOUT COMPLETED DATE/TIME: 07/25/2017 10:05 am REASON FOR STUDY: cva COMPARISON: CT dated 07/25/2017. MRI dated 07/17/2017. TECHNIQUE: Multiplanar imaging includes non-contrasted T1, T2, FLAIR, and diffusion with ADC map seq uences. Images stored on PACS. LIMITATIONS: None. FINDINGS: ANATOMY: No anomalies. Normal vascular flow voids. Pituitary fossa normal. CSF SPACES: Normal in size and contour. No hemorrhage. CEREBRUM: Sulci and gyri normal in size and contour. Stable old encephalomalacia involving the right cerebellar hemisphere. Focal area of signal change in the right cerebral peduncle, possibly an old lacunar infarct. No acute findings. Normal white matter signal on FLAIR imaging. No evidence of he morrhage, mass, or extraaxial fluid collection. POSTERIOR FOSSA: No signal alteration. No hemorrhage. No edema, masses or mass effect. Internal marcos tory canals, cerebello-pontine angles, mastoids normal. DIFFUSION IMAGING: There are several areas of restricted diffusion in the left cerebral hemisphere. Areas of involvement include the left occipital lobe, left posterior parietal/ temporal lobe, and a f ew smaller focal areas in the left frontal and parietal lobe. ORBITS: No masses. Globes normal. PARANASAL SINUSES: No fluid levels. Mucosa normal. OTHER: No other significant finding. IMPRESSION: 1. SEVERAL AREAS OF RESTRICTED DIFFUSION IN THE LEFT CEREBRAL HEMISPHERE. THE PATTERN OF INVOLVEMENT SUGGESTS THAT THESE ARE PROBABLY RELATED TO EMBOLI FROM A PROXIMAL SOURCE OPPOSED TO A REGIONAL V ESSEL OCCLUSION. INVOLVEMENT OF THE LEFT OCCIPITAL LOBE COULD CORRELATE WITH THE PATIENT'S COMPLAINT OF VISUAL PROBLEMS AT THE TIME OF THE PREVIOUS MRI (07/17/2017). INVOLVEMENT OF THE LEFT POSTERIOR PA RIETAL/TEMPORAL LOBE COULD CORRELATE WITH THE PATIENT'S CURRENT COMPLAINT OF SPEECH DIFFICULTY. 2. OLD ENCEPHALOMALACIA INVOLVING THE RIGHT CEREBELLAR HEMISPHERE, PRESUMED DUE TO AN OLD INFARCT. 3. NO OTHER SIGNIFICANT FINDINGS. EVIDENCE OF ACUTE STROKE: YES. LEFT MCA AND LEFT RN TRANSPLANT. COMMENT: Pertinent findings on the imaging study reported as a CRITICAL RESULT to ER PROVIDER at10: 16 on 07/25/2017. Category of Critical Result: Acute cerebral infarct. TECHNICAL DOCUMENTATION: JOB ID: [id number] [employer]- All Rights Reserved Reading location - IP/workstation name: [email or web address]
--- NOTE | 2017-07-26 10:19 | EKG REPORT ---
SEVERITY:- NORMAL ECG - SINUS RHYTHM : Confirmed by: Sloan Barron 26-Jul-2017 10:18:22
== END 2017-07-25 10:31 | disposition short-term general hospital (02) ==
LOC: ER 08:49
DX: I63.9 Cerebral infarction, unspecified (principal); I10 Essential (primary) hypertension; E78.00 Pure hypercholesterolemia, unspecified; Z86.73 Personal history of transient ischemic attack (TIA), and cerebral infarction without residual deficits; R29.703 NIHSS score 3; Z87.891 Personal history of nicotine dependence
CPT/HCPCS: 93005; 99285; 96365; 36415; 82553; 82550; 85025; 85610; 85730; 80053; 84484; 70551; 71045; 70450; 93010; J2997

== ENCOUNTER 2017-08-02 13:28 | Observation (INO) | payer MEDICARE, MEDICAID ==
--- NOTE | 2017-08-02 14:16 | ER Document Report ---
ED Medical Screen (RME) - General Chief Complaint: Other Stated Complaint: LOW VITALS Time Seen by Provider: 08/02/17 14:01 Notes: Patient presents from nursing facility for concern of altered mentation and low blood pressure. Patient recently was discharged from [facility] this week for strokelike symptoms and was seen at this hospital and was provided TPA prior to transport to [facility]. Patient is somnolent in triage but arousable. CT of head ordered with labs. I have greeted and performed a rapid initial assessment of this patient. A comprehensive ED assessment and evaluation of the patient, analysis of test results and completion of the medical decision making process will be conducted by additional ED providers. PHYSICAL EXAMINATION: GENERAL: Somnolent HEAD: Atraumatic, normocephalic. ENT: Nares patent LUNGS: No respiratory distress NEUROLOGICAL: Jumbled speech PSYCH: Normal mood, normal affect. SKIN: Warm, Dry, normal turgor, no rashes or lesions noted. TRAVEL OUTSIDE OF THE [place] IN LAST 30 DAYS: No - Related Data Allergies/Adverse Reactions: lisinopril Allergy (Verified 08/02/17 13:42) Angioneurotic Edema Past Medical History - Past Medical History Cardiac Medical History: Reports: Hx Hypertension Neurological Medical History: Reports: Hx Cerebrovascular Accident, Hx Seizures Renal/ Medical History: Denies: Hx Peritoneal Dialysis Past Surgical History: Reports: Hx Orthopedic Surgery Physical Exam - Vital signs Vitals: Temp Pulse Resp BP Pulse Ox 98.4 F 94 20 102/60 94 08/02/17 13:41 08/02/17 13:41 08/02/17 13:41 08/02/17 13:41 08/02/17 13:41 Course - Vital Signs Vital signs: Temp Pulse Resp BP Pulse Ox 98.4 F 94 20 102/60 94 08/02/17 13:41 08/02/17 13:41 08/02/17 13:41 08/02/17 13:41 08/02/17 13:41
--- NOTE | 2017-08-02 14:29 | RADIOLOGY REPORT (SQ) ---
EXAM DESCRIPTION: CT HEAD WITHOUT COMPLETED DATE/TIME: 08/02/2017 2:16 pm REASON FOR STUDY: recent lytic stroke, now ams COMPARISON: None. TECHNIQUE: Axial images acquired through the brain without intravenous contrast. Images reviewed wi th bone, brain and subdural windows. Images stored on PACS. All CT scanners at this facility use dose modulation, iterative reconstruction, and/or weight based d osing when appropriate to reduce radiation dose to as low as reasonably achievable (ALARA). [facility]: Dose Right [facility]: CareDose [facility]: Dose Right [facility]: Teradose 4D [facility]: [employer] RADIATION DOSE: CT Rad equipment meets quality standard of care and radiation dose reduction techniq ues were employed. CTDIvol: 64.6 mGy. DLP: 1034 mGy-cm. mGy. LIMITATIONS: None. FINDINGS: VENTRICLES: Prominent. CEREBRUM: No masses. No hemorrhage. No midline shift. Areas of low density in the white matter mos t likely due to chronic micro-vascular ischemic change. No evidence for acute infarction. CEREBELLUM: Old right cerebellar infarct. No acute findings. EXTRAAXIAL SPACES: Mild age-related involutional change. No fluid collections. No masses. ORBITS AND GLOBE: No intra- or extraconal masses. Normal contour of globe without masses. CALVARIUM: No fracture. PARANASAL SINUSES: No fluid or mucosal thickening. SOFT TISSUES: No mass or hematoma. OTHER: No other significant finding. IMPRESSION: Chronic ischemic changes. EVIDENCE OF ACUTE STROKE: NO. TECHNICAL DOCUMENTATION: JOB ID: [id number] Quality ID # [id number]: Final reports with documentation of one or more dose reduction techniques (e.g., Au tomated exposure control, adjustment of the mA and/or kV according to patient size, use of iterative reconstruction technique) 2010 [employer]- All Rights Reserved Reading location - IP/workstation name: [email or web address]
[2017-08-02] MEDS ORDERED: NORMAL SALINE 1000 ML 1,000 ML IV ONE ×2 (15:22→17:16)
[2017-08-02 15:24] LABS: ABSOLUTE BASOPHILS # (AUTO) 0.1 10^3/uL (0.0-0.2); ABSOLUTE EOSINOPHILS # (AUTO) 0.1 10^3/uL (0.0-0.6); ABSOLUTE LYMPHOCYTES (AUTO) 3.1 10^3/uL (0.5-4.7); ABSOLUTE MONOCYTES (AUTO) 1.4 10^3/uL (0.1-1.4); ABSOLUTE NEUT (AUTO) 14.1 10^3/uL (1.7-8.2); BASOPHILS % (AUTO) 0.6 % (0-2); EOSINOPHILS % (AUTO) 0.7 % (0-6); HEMATOCRIT 35.4 % (37.9-51.0); HEMOGLOBIN 12.1 g/dL (13.5-17.0); LYMPHOCYTES % (AUTO) 16.4 % (13-45); MEAN CORPUSCULAR HEMOGLOBIN 32.2 pg (27.0-33.4); MEAN CORPUSCULAR HGB CONC 34.2 g/dL (32.0-36.0); MEAN CORPUSCULAR VOLUME 94 fl (80-97); MONOCYTES % (AUTO) 7.4 % (3-13); PLATELET COUNT 478 10^3/uL (150-450); RED BLOOD COUNT 3.77 10^6/uL (4.35-5.55); RED CELL DISTRIBUTION WIDTH 12.9 % (11.5-14.0); SEGMENTED NEUTROPHILS % (AUTO) 74.9 % (42-78); TOTAL CELLS COUNTED % (AUTO) 100 %; WHITE BLOOD COUNT 18.9 10^3/uL (4.0-10.5)
--- NOTE | 2017-08-02 15:24 | ER Document Report ---
ED General - General Chief Complaint: Other Stated Complaint: LOW VITALS Time Seen by Provider: 08/02/17 14:01 Notes: 57-year-old male history of recent stroke. At skilled nursing. Noted to be more somnolent today. Low blood pressure. No reported change in medications according the nursing staff at facility. Patient is sleeping but arousable. TRAVEL OUTSIDE OF THE [place] IN LAST 30 DAYS: No - Related Data Allergies/Adverse Reactions: lisinopril Allergy (Verified 08/02/17 13:42) Angioneurotic Edema Past Medical History - General Information source: [facility] Records, Outside Facility Records - Social History Smoking Status: Never Smoker Chew tobacco use (# tins/day): No Frequency of alcohol use: None Drug Abuse: None Lives with: [facility] Family History: Reviewed & Not Pertinent, CVA, Hyperlipidemia, Hypertension Patient has suicidal ideation: No Patient has homicidal ideation: No - Past Medical History Cardiac Medical History: Reports: Hx Hypertension Neurological Medical History: Reports: Hx Cerebrovascular Accident, Hx Seizures Renal/ Medical History: Denies: Hx Peritoneal Dialysis Past Surgical History: Reports: Hx Orthopedic Surgery - Immunizations Hx Pneumococcal Vaccination: 02/16/14 Review of Systems - Review of Systems -: Yes ROS unobtainable due to patient's medical condition - Altered mental status Physical Exam - Vital signs Vitals: Temp Pulse Resp BP Pulse Ox 98.4 F 94 20 102/60 94 08/02/17 13:41 08/02/17 13:41 08/02/17 13:41 08/02/17 13:41 08/02/17 13:41 Interpretation: Hypotensive - General General appearance: Appears well, Lethargic - HEENT Head: Normocephalic, Atraumatic Eyes: Normal Pupils: PERRL Mucous membranes: Dry - Respiratory Respiratory status: No respiratory distress Chest status: Nontender Breath sounds: Normal Chest palpation: Normal - Cardiovascular Rhythm: Regular Heart sounds: Normal auscultation Murmur: No - Abdominal Inspection: Normal Distension: No distension Bowel sounds: Normal Tenderness: Nontender Organomegaly: No organomegaly - Back Back: Normal, Nontender - Extremities General upper extremity: Normal inspection, Nontender, Normal color, Normal ROM , Normal temperature General lower extremity: Normal inspection, Nontender, Normal color, Normal ROM , Normal temperature, Normal weight bearing. No: Keenan's sign - Neurological Neuro grossly intact: Yes [place] Coma Scale Verbal: Confused Speech: Expressive aphasia Sensory: Normal - Skin Skin Temperature: Warm Skin Moisture: Dry Skin Color: Normal Course - Re-evaluation Re-evalutation: 08/02/17 15:56 definitely has the appearance of medication overdose or possible accidental overdose. Does not have pinpoint pupils. Patient does have Flexeril on his medications reconciliation sheet so it is possible that this could be Flexeril induced stupor. Will proceed with basic labs as well as a urine drug screen, blood pressure is a little on the low side so given fluids. Will check electrolytes and reassess. 08/02/17 16:55 he is now sitting upright. Has his glasses on and has been making a phone call. Does have a slightly elevated WBC count. Patient is talking states that he does not really know what is going on other than his blood pressure seem to be a little bit low today. Normally blood pressure runs in the 130s over 80s. Patient is hard to understand but if you listen closely you actually can understand what he is same. States that he has been eating Tums like crazy over the last several days. Having some diffuse achy abdominal pain. At this time will go ahead and do a CT scan of the abdomen and pelvis to look for any signs of infection. Repeat exam performed. Patient seems to have some mild left lower quadrant tenderness but no guarding or rebound. 08/02/17 19:51 CT scan unremarkable with exception of incidental finding of the left iliac lesion/thrombus which appears chronic. Did consult with the radiologist regarding the finding. Patient's foot is warm and pulses are present. Will consult with the vascular surgeon just to make sure there is nothing further before we admit at this time. Hospitalist is evaluating the patient at this time as well per 08/02/17 19:[address] Angel Rodas. He does not feel he needs to come in at this time but will do a consult tomorrow. Will proceed with admission at this time. - Vital Signs Vital signs: Temp Pulse Resp BP Pulse Ox 98.4 F 94 12 104/65 100 08/02/17 13:41 08/02/17 13:41 08/02/17 19:00 08/02/17 19:00 08/02/17 17:01 - Laboratory Result Diagrams: 08/02/17 15:04 08/02/17 15:04 Laboratory results interpreted by me: 08/02/17 08/02/17 15:04 15:04 WBC 18.9 H RBC 3.77 L Hgb 12.1 L Hct 35.4 L Plt Count 478 H Absolute Neutrophils 14.1 H Sodium 129.6 L Chloride 97 L BUN 27 H Direct Bilirubin 0.5 H Critical Care Note - Critical Care Note Total time excluding time spent on procedures (mins): 35 Comments: Altered mental status, hypotension Discharge - Discharge Clinical Impression: Hyponatremia, Transient hypotension Leukocytosis Qualifiers: Leukocytosis type: unspecified Qualified Code(s): D72.829 - Elevated white blood cell count, unspecified Altered mental status, unspecified Qualifiers: Altered mental status type: unspecified Qualified Code(s): R41.82 - Altered mental status, unspecified Condition: Good Disposition: ADMITTED INPATIENT Admitting Provider: Hospitalist - [facility] Admitted: Telemetry Referrals: MYA MIRANDA HOUSEKEEPER MANAGER [Primary Care Provider] - Follow up as needed
[2017-08-02 15:47] LABS: ALANINE AMINOTRANSFERASE 40 U/L (21-72); ALBUMIN 3.9 g/dL (3.5-5.0); ALKALINE PHOSPHATASE 125 U/L (38-126); ANION GAP 11 (5-19); ASPARTATE AMINO TRANSFERASE 24 U/L (17-59); BILIRUBIN,DIRECT 0.5 mg/dL (0.0-0.4); BLOOD UREA NITROGEN 27 mg/dL (7-20); CALCIUM 9.7 mg/dL (8.4-10.2); CARBON DIOXIDE 22 mmol/L (22-30); CHLORIDE 97 mmol/L (98-107); GLUCOSE 93 mg/dL (75-110); POTASSIUM 4.5 mmol/L (3.6-5.0); SODIUM 129.6 mmol/L (137-145); TOTAL PROTEIN 6.5 g/dL (6.3-8.2)
[2017-08-02 16:23] LABS: APPEARANCE,URINE CLEAR; BILIRUBIN,URINE NEGATIVE (NEGATIVE); COLOR,URINE YELLOW; GLUCOSE, URINE NEGATIVE (NEGATIVE); KETONES,URINE NEGATIVE (NEGATIVE); LEUKOCYTE ESTERASE,URINE NEGATIVE (NEGATIVE); NITRITE,URINE NEGATIVE (NEGATIVE); PROTEIN,URINE NEGATIVE (NEGATIVE); URINE SPECIFIC GRAVITY 1.012; UROBILINOGEN,URINE NEGATIVE mg/dL (<2.0)
--- NOTE | 2017-08-02 16:27 | EKG REPORT ---
SEVERITY:- NORMAL ECG - SINUS RHYTHM : Confirmed by: Yazan Diaz MD 02-Aug-2017 16:26:35
[2017-08-02 16:41] LABS: URINE AMPHETAMINES SCREEN NEGATIVE; URINE BARBITURATES SCREEN NEGATIVE; URINE BENZODIAZEPINES SCREEN NEGATIVE; URINE COCAINE SCREEN NEGATIVE; URINE MARIJUANA (THC) SCREEN NEGATIVE; URINE METHADONE SCREEN NEGATIVE; URINE PHENCYCLIDINE SCREEN NEGATIVE
--- NOTE | 2017-08-02 18:44 | RADIOLOGY REPORT (SQ) ---
EXAM DESCRIPTION: CT ABD/PELVIS WITH IV ONLY COMPLETED DATE/TIME: 08/02/2017 6:02 pm REASON FOR STUDY: abd pain, elevated WBC COMPARISON: None. TECHNIQUE: CT scan of the abdomen and pelvis performed using helical scanning technique with dynamic intravenous contrast injection. No oral contrast. Images reviewed with lung, soft tissue, and bone windows. Reconstructed coronal and sagittal MPR images reviewed. Delayed images for evaluation of the urinary system also acquired. All images stored on PACS. All CT scanners at this facility use dose modulation, iterative reconstruction, and/or weight based d osing when appropriate to reduce radiation dose to as low as reasonably achievable (ALARA). [facility]: Dose Right [facility]: CareDose [facility]: Dose Right [facility]: Teradose 4D [facility]: [employer] CONTRAST TYPE AND DOSE: contrast/concentration: Isovue 370.00 mg/ml; Total Contrast Delivered: 81.0 ml; Total Saline Delivered: 68.0 ml RENAL FUNCTION: Creatinine 0.96 RADIATION DOSE: CT Rad equipment meets quality standard of care and radiation dose reduction techniq ues were employed. CTDIvol: 6.3 - 8.8 mGy. DLP: 826 mGy-cm.. LIMITATIONS: None. FINDINGS: LOWER CHEST: No consolidation or pleural effusion. LIVER: Normal size. No masses. No dilated ducts. SPLEEN: Normal size. Small calcifications at the spleen, may represent granulomas. PANCREAS: No significant calcifications. No adjacent inflammation or peripancreatic fluid collections . Pancreatic duct not dilated. GALLBLADDER: No identified stones by CT criteria. No inflammatory changes to suggest cholecystitis. ADRENAL GLANDS: No significant masses or asymmetry. RIGHT KIDNEY AND URETER: No solid masses. No significant calcifications. No hydronephrosis or hyd roureter. LEFT KIDNEY AND URETER: No solid masses. No significant calcifications. No hydronephrosis or hydr oureter. AORTA AND VESSELS: Atherosclerotic calcifications at the abdominal aorta and its branches. No abdomi nal aortic aneurysm. Intramural thrombus with severe stenosis/occlusion of the left common iliac and left external iliac arteries. RETROPERITONEUM: No retroperitoneal adenopathy, hemorrhage or masses. BOWEL AND PERITONEAL CAVITY: No dilated bowel loops or inflammatory changes. No free fluid or periton eal masses. APPENDIX: Normal. PELVIS: No mass. No free fluid. Urinary bladder is partially distended. ABDOMINAL WALL: No hernias. BONES: Degenerative changes at the spine. There is bilateral pars defect at L5. No significant list hesis. IMPRESSION: Atherosclerotic disease. Intramural thrombus with severe stenosis/occlusion of the left common iliac and left external iliac arteries. Otherwise, no acute findings. TECHNICAL DOCUMENTATION: JOB ID: [id number] [place]- Quality ID # [id number]: Final reports with documentation of one or more dose reduction techniques (e.g., Au tomated exposure control, adjustment of the mA and/or kV according to patient size, use of iterative reconstruction technique) 2010 [employer]- All Rights Reserved Reading location - IP/workstation name: [email or web address]
[2017-08-02] MEDS ORDERED: (PENDING PHARMACY ID) (Acetaminophen [Tylenol Extra Strength 500 Mg Tablet] 500 MG) PO PRN (20:24)
[2017-08-02] MEDS ORDERED: IPRATROPIUM/ALBUTEROL 0.5-2.5 MG/3 ML AMPUL NEB PRN (20:25)
[2017-08-02] MEDS: HEPARIN SOD (PORCINE) 5,000 UNIT/ML 1 ML SYRINGE SUBCUT SCH (22:00)
--- NOTE | 2017-08-03 05:56 | PDOC H&P ---
History of Present Illness Admission Date/PCP: 08/02/17 20:04 MYA MIRANDA NP Patient complains of: AMS History of Present Illness: VAMSI VILLAFUERTE is a 57 year old male with a past medical history of hypertension , dyslipidemia, seizure and CVA with residual speech impediment he is a long- term long-term resident and found by staff to be somnolent prompting a referral to the emergency room where he is indeed found lethargic protecting his airway with stable vitals. 1 hour later pending workup he is found wide awake and alert sitting upright with his glasses on making phone call and talkative at baseline. He denies complaints his labs reveal a leukocytosis of 18,[address] of the abdomen pelvis reveals an incidental finding of the left iliac artery with chronic appearing thrombus. Foot is warm with pulses. He is referred to the hospitalist for admission. Past Medical History Cardiac Medical History: Reports: Hypertension Neurological Medical History: Reports: Ischemic CVA, Seizures Past Surgical History Past Surgical History: Reports: Orthopedic Surgery Social History Information Source: Patient, [facility] Records Lives with: Long-Term Smoking Status: Never Smoker Frequency of Alcohol Use: None Hx Recreational Drug Use: No Drugs: None Hx Prescription Drug Abuse: No - Advance Directive Resuscitation Status: Full Code Family History Family History: CVA, Hyperlipidemia, Hypertension Parental Family History Reviewed: Yes Children Family History Reviewed: Yes Sibling(s) Family History Reviewed.: Yes Medication/Allergy Home Medications: Acetaminophen [Tylenol Extra Strength 500 mg Tablet] 500 mg PO Q4HP PRN Chlorhexidine Gluconate [Periogard 0.12% Oral Rinse 15 ml] 10 ml PO TIDHS PRN Cyclobenzaprine HCl [Flexeril 10 mg Tablet] 10 mg PO TID 06/12/16 Escitalopram Oxalate [Lexapro 10 mg Tablet] 10 mg PO DAILY 06/12/16 Felodipine [Felodipine ER] 10 mg PO DAILY 06/12/16 Guaifenesin [Robitussin Syrup 200 mg/10 ml Ud Cup] 10 ml PO HSP PRN 06/12/16 Loperamide HCl [Loperamide] 2 mg PO QIDP PRN 06/12/16 Magnesium Hydroxide [Milk of Magnesia 30 ml Udcup] 30 ml PO HSP PRN 06/12/16 Meloxicam [Mobic 7.5 mg Tablet] 7.5 mg PO DAILY 06/12/16 Methylphenidate HCl [Methylphenidate ER] 10 mg PO DAILY 06/12/16 Neomycin/Bacitracin/Polymyxinb [Triple Antibiotic Ointment] 1 applic TOP DAILYP PRN 06/12/16 Omeprazole 20 mg PO DAILY 06/12/16 Simvastatin [Zocor 20 mg Tablet] 60 mg PO QHS 06/12/16 Diphenhydramine HCl [Benadryl 50 mg Capsule] 1 cap PO Q6HP PRN #14 capsule 06/13 Famotidine [Pepcid 20 mg Tablet] 20 mg PO BID #12 tablet 06/13/16 Prednisone 20 mg PO BID #10 tablet 06/13/16 Allergies/Adverse Reactions: lisinopril Allergy (Verified 08/02/17 13:42) Angioneurotic Edema Review of Systems Constitutional: ABSENT: chills, fever(s), headache(s), weight gain, weight loss Eyes: ABSENT: visual disturbances Ears: ABSENT: hearing changes Cardiovascular: ABSENT: chest pain, dyspnea on exertion, edema, orthropnea, palpitations Respiratory: ABSENT: cough, hemoptysis Gastrointestinal: ABSENT: abdominal pain, constipation, diarrhea, hematemesis, hematochezia, nausea, vomiting Genitourinary: ABSENT: dysuria, hematuria Musculoskeletal: ABSENT: joint swelling Integumentary: ABSENT: rash, wounds Neurological: ABSENT: abnormal gait, abnormal speech, confusion, dizziness, focal weakness, syncope Psychiatric: ABSENT: anxiety, depression, homidical ideation, suicidal ideation Endocrine: ABSENT: cold intolerance, heat intolerance, polydipsia, polyuria Hematologic/Lymphatic: ABSENT: easy bleeding, easy bruising Physical Exam Vital Signs: Temp Pulse Resp BP Pulse Ox 97.8 F 94 16 115/60 98 08/03/17 02:00 08/02/17 13:41 08/03/17 04:03 08/03/17 04:03 08/03/17 04:03 General appearance: PRESENT: no acute distress, cooperative, well-developed, well-nourished, other - Speech impediment at baseline with reasonable use of vocabulary. Head exam: PRESENT: atraumatic, normocephalic Eye exam: PRESENT: conjunctiva pink, EOMI, PERRLA. ABSENT: scleral icterus Ear exam: PRESENT: normal external ear exam Mouth exam: PRESENT: moist, tongue midline Neck exam: ABSENT: carotid bruit, JVD, lymphadenopathy, thyromegaly Respiratory exam: PRESENT: clear to auscultation yolis. ABSENT: rales, rhonchi, wheezes Cardiovascular exam: PRESENT: RRR. ABSENT: diastolic murmur, rubs, systolic murmur Pulses: PRESENT: normal dorsalis pedis pul Vascular exam: PRESENT: normal capillary refill GI/Abdominal exam: PRESENT: normal bowel sounds, soft. ABSENT: distended, guarding, mass, organolmegaly, rebound, tenderness Rectal exam: PRESENT: deferred Extremities exam: PRESENT: full ROM. ABSENT: calf tenderness, clubbing, pedal edema Neurological exam: PRESENT: alert, awake, oriented to person, oriented to place , oriented to time, oriented to situation, CN II-XII grossly intact. ABSENT: motor sensory deficit Psychiatric exam: PRESENT: appropriate affect, normal mood. ABSENT: homicidal ideation, suicidal ideation Skin exam: PRESENT: dry, intact, warm. ABSENT: cyanosis, rash Results Impressions: Head CT 08/02/17 00:00 IMPRESSION: Chronic ischemic changes. EVIDENCE OF ACUTE STROKE: NO. Abdomen/Pelvis CT 08/02/17 16:54 IMPRESSION: Atherosclerotic disease. Intramural thrombus with severe stenosis/ occlusion of the left common iliac and left external iliac arteries. Otherwise , no acute findings. Assessment & Plan - Diagnosis (1) Altered mental status, unspecified Qualifiers: Altered mental status type: unspecified Qualified Code(s): R41.82 - Altered mental status, unspecified Is this a current diagnosis for this admission?: Yes Plan: Given return to baseline spontaneously without intervention or residual effects , suspect polypharmacy of Flexeril and/or diphenhydramine. Continue telemetry observation (2) Hyponatremia Is this a current diagnosis for this admission?: Yes Plan: Mild likely secondary to hydrochlorothiazide. Hold and reevaluate chemistry. (3) Leukocytosis Qualifiers: Leukocytosis type: unspecified Qualified Code(s): D72.829 - Elevated white blood cell count, unspecified Is this a current diagnosis for this admission?: Yes Plan: No acute findings follow-up CBC consider hematology consult. (4) Thrombus Is this a current diagnosis for this admission?: Yes Plan: Given lack of symptoms suspect chronic state, vascular surgery consult ordered. - Time Time Spent: 30 to 50 Minutes
[2017-08-03 06:17] LABS: ABSOLUTE BASOPHILS # (AUTO) 0.1 10^3/uL (0.0-0.2); ABSOLUTE EOSINOPHILS # (AUTO) 0.1 10^3/uL (0.0-0.6); ABSOLUTE LYMPHOCYTES (AUTO) 2.7 10^3/uL (0.5-4.7); ABSOLUTE MONOCYTES (AUTO) 1.1 10^3/uL (0.1-1.4); ABSOLUTE NEUT (AUTO) 8.7 10^3/uL (1.7-8.2); BASOPHILS % (AUTO) 0.8 % (0-2); HEMATOCRIT 33.6 % (37.9-51.0); HEMOGLOBIN 11.7 g/dL (13.5-17.0); LYMPHOCYTES % (AUTO) 20.9 % (13-45); MEAN CORPUSCULAR HEMOGLOBIN 32.2 pg (27.0-33.4); MEAN CORPUSCULAR HGB CONC 34.8 g/dL (32.0-36.0); MEAN CORPUSCULAR VOLUME 93 fl (80-97); MONOCYTES % (AUTO) 8.8 % (3-13); PLATELET COUNT 443 10^3/uL (150-450); RED BLOOD COUNT 3.63 10^6/uL (4.35-5.55); SEGMENTED NEUTROPHILS % (AUTO) 68.5 % (42-78); TOTAL CELLS COUNTED % (AUTO) 100 %; WHITE BLOOD COUNT 12.8 10^3/uL (4.0-10.5)
[2017-08-03] MEDS: HEPARIN SOD (PORCINE) 5,000 UNIT/ML 1 ML SYRINGE SUBCUT SCH ×3 (06:55→23:00)
[2017-08-03 07:27] LABS: ANION GAP 10 (5-19); BLOOD UREA NITROGEN 16 mg/dL (7-20); CALCIUM 9.6 mg/dL (8.4-10.2); CARBON DIOXIDE 26 mmol/L (22-30); CHLORIDE 100 mmol/L (98-107); GLUCOSE 101 mg/dL (75-110); POTASSIUM 4.3 mmol/L (3.6-5.0); SODIUM 135.7 mmol/L (137-145)
[2017-08-03] MEDS: ACETAMINOPHEN 325 MG TABLET PO PRN ×3 (07:54→23:01)
--- NOTE | 2017-08-03 09:39 | PROGRESS NOTE E ---
Progress Note NAME: VAMSI VILLAFUERTE : 1960 AGE: 57Y DATE: 08/03/2017 ROOM: ED18 SUBJECTIVE: The patient is a 57-year-old male, who has a past medical history of hypertension, hyperlipidemia, seizures, CVA with visual impairment. He lives at a [facility] and he was found somnolent and referred for evaluation. The patient had a leukocytosis, thrombocytosis. He had a CT head, which was unremarkable and also had CT abdomen in which he was found to have left iliac artery with chronic appearing thrombus. Review of the findings on the CT scan of abdomen by surgeon and it seemed to be chronic and there is no intervention recommended at this point. The patient is feeling much better today. He is on multiple sedative medications at the [facility]. He takes Lexapro, Benadryl, Flexeril, as well as Mobic. When I saw him, he was doing much better, awake, alert. No neurologic finding, no neurological symptom or sign. OBJECTIVE: GENERAL: The patient is lying in bed. VITAL SIGNS: Temperature 97.9, heart rate 86, respiratory 17, saturation 99% room air. HEENT: Normocephalic, atraumatic. Pupils are round, reactive to light and accommodation bilaterally. Extraocular movements intact. Ears: Tympanic membranes intact bilaterally. No discharge from the ears. No discharge from the nose. NECK: Supple. No increased JVD. No thyromegaly. No lymphadenopathy. CARDIOVASCULAR: Normal S1 and S2. Regular rate and rhythm. No murmur. No gallop. RESPIRATORY: Lungs clear. ABDOMEN: Soft and nontender. MUSCULOSKELETAL: No edema. NEUROLOGIC: Awake, alert. SKIN: No rash. LABORATORY: Sodium 135, potassium 4.5, chloride 100, creatinine 0.7. White blood count 12.8, hemoglobin 11.6 with hematocrit of 33. Urinalysis unremarkable. CT scan of the head was normal. ASSESSMENT: 1. ALTERED MENTAL STATUS. Probably secondary to polypharmacy. The patient is on multiple medications that can cause altered mental status; Lexapro, Benadryl, Flexeril. CT scan did not show any stroke and symptoms resolved. 2. LEFT ILIAC ARTERY WITH CHRONIC THROMBUS. 3. PERIPHERAL VASCULAR DISEASE. 4. LEUKOCYTOSIS. Chest x-ray unremarkable. Urinalysis also unremarkable. No fever. 5. HYPONATREMIA. Resolved, this was secondary hydrochlorothiazide, which was held. PLAN: 1. I will place the patient on aspirin full dose for severe peripheral vascular disease with chronic thrombus in the left iliac artery. Probable he will need vascular surgical evaluation. This can be done as an outpatient because the thrombus is chronic. 2. The patient symptoms resolved. We need to adjust his home medication. When he is discharge home, his Benadryl needs to be changed from 50 every 6 hours to 25 every 8 hours, as well as Flexeril also needs to be discontinued. MEDICAL NECESSITY: The patient needs to stay because of altered mental status, observe overnight and discharge home tomorrow if stable. DICTATING PHYSICIAN: LESLEY BOO M.D. [id number] DEBBIE#: [id number] ID: [id number] JOB#: [id number] ACCT: [id number] cc: > MTDD
[2017-08-03] MEDS ORDERED: (PENDING PHARMACY ID) (Felodipine [Felodipine Er] 10 MG) PO SCH (10:00)
[2017-08-03] MEDS: ESCITALOPRAM OXALATE 10 MG TABLET PO SCH (10:10)
[2017-08-03] MEDS: AMLODIPINE BESYLATE 5 MG TABLET PO SCH (10:10)
[2017-08-03] MEDS: DOCUSATE SODIUM 100 MG CAPSULE PO SCH ×2 (10:10→23:00)
[2017-08-04] MEDS: HEPARIN SOD (PORCINE) 5,000 UNIT/ML 1 ML SYRINGE SUBCUT SCH ×3 (05:54→23:46)
[2017-08-04] MEDS ORDERED: (PENDING PHARMACY ID) (Acetaminophen [Tylenol Extra Strength 500 Mg Tablet] 500 MG) PO PRN (09:05)
[2017-08-04 09:53] LABS: HEMATOCRIT 34.8 % (37.9-51.0); HEMOGLOBIN 11.9 g/dL (13.5-17.0); MEAN CORPUSCULAR HEMOGLOBIN 32.1 pg (27.0-33.4); MEAN CORPUSCULAR HGB CONC 34.1 g/dL (32.0-36.0); MEAN CORPUSCULAR VOLUME 94 fl (80-97); PLATELET COUNT 489 10^3/uL (150-450); RED CELL DISTRIBUTION WIDTH 12.9 % (11.5-14.0); WHITE BLOOD COUNT 12.5 10^3/uL (4.0-10.5)
[2017-08-04] MEDS ORDERED: (PENDING PHARMACY ID) (Felodipine [Felodipine Er] 10 MG) PO SCH (10:00)
[2017-08-04] MEDS ORDERED: METHYLPHENIDATE HCL 10 MG PO SCH (10:00)
[2017-08-04] MEDS ORDERED: FLUOXETINE HCL 20 MG CAPSULE PO SCH (10:00)
[2017-08-04 10:11] LABS: ANION GAP 11 (5-19); BLOOD UREA NITROGEN 13 mg/dL (7-20); CALCIUM 9.9 mg/dL (8.4-10.2); CARBON DIOXIDE 26 mmol/L (22-30); CHLORIDE 99 mmol/L (98-107); GLUCOSE 122 mg/dL (75-110); POTASSIUM 4.4 mmol/L (3.6-5.0); SODIUM 135.7 mmol/L (137-145)
[2017-08-04] MEDS: ASPIRIN 325 MG TABLET, ENT COATED PO SCH (11:40)
[2017-08-04] MEDS: ESCITALOPRAM OXALATE 10 MG TABLET PO SCH (11:40)
[2017-08-04] MEDS: CLOPIDOGREL BISULFATE 75 MG TABLET PO SCH (11:41)
[2017-08-04] MEDS: AMLODIPINE BESYLATE 5 MG TABLET PO SCH (11:41)
[2017-08-04] MEDS: FAMOTIDINE 20 MG TABLET PO SCH ×2 (11:42→17:25)
[2017-08-04] MEDS: GABAPENTIN 100 MG CAPSULE PO SCH ×2 (11:45→23:46)
[2017-08-04] MEDS: DOCUSATE SODIUM 100 MG CAPSULE PO SCH ×2 (11:46→17:34)
[2017-08-04] MEDS: CHLORHEXIDINE GLUCONATE 0.12% ORAL RINSE 15 ML UDC MM PRN ×3 (11:46→23:47)
[2017-08-04] MEDS ORDERED: NICOTINE 21 MG/24 HR PATCH.TD24 TD ONE (16:30)
--- NOTE | 2017-08-04 18:42 | PDOC PROGRESS REPORT ---
Subjective Progress Note for:: 08/04/17 Subjective:: VAMSI VILLAFUERTE is a 57 year old male admitted for oversedation/polypharmacy. Patient has a history of CVA, HTN, HLD, seizures. Patient lives at a long-term residential, where he currently takes Lexapro, Benadryl, Flexeril, neurontin and Mobic on a daily basis. The patient was seen this morning on rounds, he is awake, alert, oriented, and chronically aphasic. He has no complaints this morning. Reason For Visit: [facility] Physical Exam Vital Signs: Temp Pulse Resp BP Pulse Ox 98.4 F 79 16 145/84 H 98 08/04/17 08:00 08/04/17 14:00 08/04/17 12:50 08/04/17 08:00 08/04/17 08:00 Intake & Output 08/03/17 08/04/17 08/05/17 06:59 06:59 06:59 Intake Total 223 Output Total 1000 Balance -777 Weight 75.8 kg Results Laboratory Results: 08/04/17 09:34 08/04/17 09:34 08/04/17 08/04/17 09:34 09:34 WBC 12.5 H RBC 3.70 L Hgb 11.9 L Hct 34.8 L MCV 94 MCH 32.1 MCHC 34.1 RDW 12.9 Plt Count 489 H Sodium 135.7 L Potassium 4.4 Chloride 99 Carbon Dioxide 26 Anion Gap 11 BUN 13 Creatinine 0.67 Est GFR ( Amer) > 60 Est GFR (Non-Af Amer) > 60 Glucose 122 H Calcium 9.9 Impressions: Head CT 08/02/17 00:00 IMPRESSION: Chronic ischemic changes. EVIDENCE OF ACUTE STROKE: NO. Abdomen/Pelvis CT 08/02/17 16:54 IMPRESSION: Atherosclerotic disease. Intramural thrombus with severe stenosis/ occlusion of the left common iliac and left external iliac arteries. Otherwise , no acute findings. Assessment & Plan - Diagnosis (1) Altered mental status, unspecified Qualifiers: Altered mental status type: unspecified Qualified Code(s): R41.82 - Altered mental status, unspecified Is this a current diagnosis for this admission?: Yes Plan: Resolved. Likely secondary to polypharmacy. The patient is currently taking Lexapro, Benadryl, Flexeril, Neurontin, and Mobic. Flexeril, benadryl and Mobic on hold. Neurontin restarted at 1/2 dose. At this time, the patient is stable enough to return to [facility]. (2) Hyponatremia Is this a current diagnosis for this admission?: Yes Plan: Resolved. Likely secondary to hydrochlorothiazide. Currently on hold. Patient's blood pressure has been relatively controlled. He has been normotensive. (3) Leukocytosis Qualifiers: Leukocytosis type: unspecified Qualified Code(s): D72.829 - Elevated white blood cell count, unspecified Is this a current diagnosis for this admission?: Yes Plan: Patient remains afebrile. Chest x-ray unremarkable. Urinalysis also unremarkable. (4) Iliac artery thrombosis, left Is this a current diagnosis for this admission?: Yes Plan: Chronic. Continue full dose aspirin for chronic thrombus in the left iliac artery. Patient will need vascular surgical evaluation following discharge from [facility]. - Time Time Spent with patient: 15-24 minutes Medications reviewed and adjusted accordingly: Yes Anticipated discharge: SNF Within: within 24 hours - Inpatient Certification Based on my medical assessment, after consideration of the patient's comorbidities, presenting symptoms, or acuity I expect that the services needed warrant INPATIENT care.: Yes I certify that my determination is in accordance with my understanding of Medicare's requirements for reasonable and necessary INPATIENT services [42 CFR 412.3e].: Yes Medical Necessity: Risk of Complication if Not Cared For in Hospital - Plan Summary Plan Summary: Discharge back to [facility], appreciate discharge planning assistance with placement.
[2017-08-04] MEDS: SIMVASTATIN 40 MG TABLET PO SCH (23:45)
[2017-08-05] MEDS: GABAPENTIN 100 MG CAPSULE PO SCH ×3 (07:02→22:09)
[2017-08-05] MEDS: HEPARIN SOD (PORCINE) 5,000 UNIT/ML 1 ML SYRINGE SUBCUT SCH ×3 (07:39→22:14)
--- NOTE | 2017-08-05 09:04 | Physician Advisory Note ---
Physician Advisor ProgressNote .: Pursuant to the plan for [facility], I have reviewed the medical record for this patient. Physician Advisor Statement: Please consider documenting, if you agree: 1. "AMS due to " ["Acute Toxic encephalopathy, due to multiple sedating medications"?] - If this is not specified further, such as above, then it will be coded as "unspecified AMS", indicating a psychiatric issue (see more detailed info below) . Status: Documentation 08/03 states pt's sx resolved, but "needs to stay because of AMS, observe overnight & d/c home tomorrow if stable." - Please document if there was still something about pt's mental status that was not yet back to baseline 08/03, or what it was that concerned attending enough to keep pt that 2nd night - if this night was due to clinical concerns ( not d/c'ing was not an oversight, or due just to pt/provider convenience, as a payer could assert), then appropriate for Inpatient status at that point, anticipating 2nd MN. Documentation 08/04 states pt is stabilized enough for d/c back to his facility. - If there was something new clinically that occurred 3 PM requiring him to stay in hospital 3 PM instead of going "home" that day, please document that , & then may be appropriate to change to Inpatient status. Thanks! CK We need to specify type of altered mental status (AMS) present: A. Acute Metabolic Encephalopathy due to = AMS due to acute or chronic medical disease state, such as systemic metabolic or intracranial process that is usually reversible when the underlying cause is corrected. - Causes include fever, infection, dehydration, acidosis, sepsis, hypoxia, electrolyte imbalance, B. Acute Toxic Encephalopathy due to =AMS due to drug, poison, or toxin. Usually reversible. C. Acute Delirium due to =nonspecific disorientation/behavioral problem with a cause that can be psychiatric, encephalopathic, or intracranial. May show confusion, disorientation, agitation, inattention, . *If documentation does not specify the underlying cause of delirium (or of AMS), the ICD-10 coding classification attributes it to a psychiatric origin ( such as schizophrenia, lito, or rapid progression of dementia), with a correspondingly lower severity of illness, than if there is encephalopathy. -Cause examples: "Delirium/AMS due to Acute Metabolic Encephalopathy, due to Delirium/AMS due to dementia with sundowning Delirium/AMS due to , superimposed on dementia, evidenced by (which is different than baseline, which is )
[2017-08-05] MEDS: FAMOTIDINE 20 MG TABLET PO SCH ×2 (10:59→17:29)
[2017-08-05] MEDS: CLOPIDOGREL BISULFATE 75 MG TABLET PO SCH (10:59)
[2017-08-05] MEDS: AMLODIPINE BESYLATE 5 MG TABLET PO SCH (10:59)
[2017-08-05] MEDS: NICOTINE 21 MG/24 HR PATCH.TD24 TD SCH (10:59)
[2017-08-05] MEDS: ASPIRIN 325 MG TABLET, ENT COATED PO SCH (10:59)
[2017-08-05] MEDS: DOCUSATE SODIUM 100 MG CAPSULE PO SCH ×2 (11:00→17:32)
[2017-08-05] MEDS: CHLORHEXIDINE GLUCONATE 0.12% ORAL RINSE 15 ML UDC MM PRN ×4 (12:01→22:14)
--- NOTE | 2017-08-05 18:55 | PDOC PROGRESS REPORT ---
Subjective Progress Note for:: 08/05/17 Subjective:: VAMSI VILLAFUERTE is a 57 year old male admitted for oversedation/polypharmacy. Patient has a history of CVA, HTN, HLD, seizures. Patient lives at a long-term alf, where he currently takes Lexapro, Benadryl, Flexeril, neurontin and Mobic on a daily basis. The patient was seen this morning on rounds, he is awake, alert, oriented, and chronically aphasic. He has no complaints this morning. Dr. Rodas (vascular surgery) was consulted and is requesting to perform a lower extremity doppler to evaluate the iliac artery thrombus. Reason For Visit: [facility] Physical Exam Vital Signs: Temp Pulse Resp BP Pulse Ox 97.5 F 103 H 18 158/78 H 98 08/05/17 08:04 08/05/17 14:00 08/05/17 08:04 08/05/17 08:04 08/05/17 08:04 Intake & Output 08/04/17 08/05/17 08/06/17 06:59 06:59 06:59 Intake Total 223 1350 Output Total 1000 1350 Balance -777 0 Weight 75.8 kg 75.8 kg General appearance: PRESENT: no acute distress Head exam: PRESENT: atraumatic Eye exam: PRESENT: conjunctiva pink Mouth exam: PRESENT: moist Respiratory exam: PRESENT: chest wall tenderness, symmetrical, unlabored Cardiovascular exam: PRESENT: +S1, +S2 Pulses: PRESENT: normal radial pulses, +1 pedal pulses bilateral GI/Abdominal exam: PRESENT: normal bowel sounds, soft Rectal exam: PRESENT: deferred Extremities exam: PRESENT: other - 5/5 strength but poor coordination with upper extremities. Musculoskeletal exam: PRESENT: ambulatory - with walker Neurological exam: PRESENT: alert, awake, oriented to person, oriented to place , oriented to time, oriented to situation Psychiatric exam: PRESENT: appropriate affect Skin exam: PRESENT: normal color Results Laboratory Results: 08/04/17 09:34 08/04/17 09:34 Impressions: Head CT 08/02/17 00:00 IMPRESSION: Chronic ischemic changes. EVIDENCE OF ACUTE STROKE: NO. Abdomen/Pelvis CT 08/02/17 16:54 IMPRESSION: Atherosclerotic disease. Intramural thrombus with severe stenosis/ occlusion of the left common iliac and left external iliac arteries. Otherwise , no acute findings. Status: Imported from PACS Assessment & Plan - Diagnosis (1) Altered mental status, unspecified Qualifiers: Altered mental status type: unspecified Qualified Code(s): R41.82 - Altered mental status, unspecified Is this a current diagnosis for this admission?: Yes Plan: Resolved. Likely secondary to polypharmacy. The patient is currently taking Lexapro, Benadryl, Flexeril, Neurontin, and Mobic. Flexeril, benadryl and Mobic on hold. Neurontin restarted at 1/2 dose. Patient is awake, alert, oriented. At this time, the patient is stable enough to return to [facility]. (2) Hyponatremia Is this a current diagnosis for this admission?: Yes Plan: Resolved. Likely secondary to hydrochlorothiazide. Currently on hold. Patient's blood pressure has been relatively controlled. He has been normotensive. (3) Leukocytosis Qualifiers: Leukocytosis type: unspecified Qualified Code(s): D72.829 - Elevated white blood cell count, unspecified Is this a current diagnosis for this admission?: Yes Plan: Patient remains afebrile. Chest x-ray unremarkable. Urinalysis also unremarkable. (4) Iliac artery thrombosis, left Is this a current diagnosis for this admission?: Yes Plan: Chronic. Continue full dose aspirin for chronic thrombus in the left iliac artery. Per the request of Dr. Rodas, patient scheduled for venous doppler prior to discharge. Results pending. - Time Time Spent with patient: 15-24 minutes Medications reviewed and adjusted accordingly: Yes Anticipated discharge: Home - Inpatient Certification Based on my medical assessment, after consideration of the patient's comorbidities, presenting symptoms, or acuity I expect that the services needed warrant INPATIENT care.: Yes I certify that my determination is in accordance with my understanding of Medicare's requirements for reasonable and necessary INPATIENT services [42 CFR 412.3e].: Yes Medical Necessity: Risk of Complication if Not Cared For in Hospital - Plan Summary Plan Summary: Plan to discharge back to [facility]
[2017-08-05] MEDS: SIMVASTATIN 40 MG TABLET PO SCH (22:09)
[2017-08-05] MEDS: ACETAMINOPHEN 325 MG TABLET PO PRN (22:09)
[2017-08-06] MEDS: HEPARIN SOD (PORCINE) 5,000 UNIT/ML 1 ML SYRINGE SUBCUT SCH ×3 (06:42→21:52)
[2017-08-06] MEDS: GABAPENTIN 100 MG CAPSULE PO SCH ×3 (06:43→21:52)
--- NOTE | 2017-08-06 07:57 | XCELERA REPORT ---
[address] [address] Lower Extremity Arterial Evaluation Name: VAMSI VILLAFUERTE Age: 57 yrs Gender: Male : 1960 Patient Status: Inpatient Patient Location: [address] [place] [address] Study Date: 08/05/2017 02:03 PM Procedure: A color flow and duplex scan of the lower extremity arteries was performed bilaterally with velocity and waveform anaylsis. Reason For Study: aleksandar LITTLE for common iliac thrombus Ordering Physician: JENY LU Performed By: Christie Dai Measurements and Calculations Right Left COMPENSATION EXPERT PSV 136.2 44.7 cm/sec Prox PFA PSV 86.4 -133.4 cm/sec Prox SFA PSV 45.1 35.8 cm/sec Mid SFA PSV -33.0 cm/sec Dist SFA PSV -16.7 -29.9 cm/sec Prox Pop A PSV 19.8 31.4 cm/sec Dist CRISTAL PSV 19.4 15.3 cm/sec Dist PROGRAM DEVELOPMENT SPECIALIST PSV 29.9 14.9 cm/sec Westley Pedis PSV -16.1 17.9 cm/sec Right Side Arterial Evaluation Normal velocity and triphasic waveforms noted in the Common Femoral artery. Occluded Femoral,monophasic with reduced velocities to the infrageniculate vessels. Occlusion at the Femoral artery. Ankle Brachial index was not done. Left Side Arterial Evaluation Low velocity and monophasic waveforms noted from the Common Femoral artery to the infrageniculate vessels. 50-99 % stenosis at the Aorto Iliac inflow. Ankle Brachial index was not done. Interpretation Summary Severe hemodynamically significant lesions in the bilateral lower extremities, on duplex imaging, at rest. : JENY LU > Jose Alejandro Rodas
--- NOTE | 2017-08-06 09:32 | CONSULTATION REPORT E ---
Consultation Report NAME: VAMSI VILLAFUERTE : 1960 AGE: 57Y DATE: 08/02/2017 535 A TO: KATHERYN BALLARD M.D. FROM: JENY LU M.D. Requesting Physician The consultation done on the request of the Hospitalist Service. 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 The patient was admitted for mental status changes. He is a long-term resident in a long term and was found difficult to arouse. PAST MEDICAL HISTORY: Of hypertension. Prior ischemic cardiovascular accidents. Seizures. 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 PAST SURGICAL HISTORY: Prior surgeries are orthopedic, not specified. SOCIAL AND FAMILY HISTORY: The patient [place] over the last few years because he is unable to care for himself. This is in order to be near a family. He is currently in an assisted living facility. He does smoke about a half pack of cigarettes per day and has done so for many years. REVIEW OF SYSTEMS: RESPIRATORY: No shortness of breath or wheezing. CARDIOVASCULAR: No chest pain or palpitations. GASTROINTESTINAL: No nausea or vomiting or constipation or diarrhea. PSYCHIATRIC: No depression or insomnia. GENITOURINARY: He denies any urinary tract infection or kidney stones. Other systems normal. PHYSICAL EXAMINATION: GENERAL: The patient is a pleasant, 57-year-old, male. Difficult to understand because of a speech impairment and possibly some aphasia. Nevertheless, he does make sense and answers appropriately. Alert and oriented at the time of the examination at about 1600. VITAL SIGNS: Blood pressure 115/60, temperature of 97.9, pulse of 94, and respiratory rate of 14. EYES: Mucous membranes pink and moist. Sclerae anicteric. OROPHARYNX: Dentition mostly intact. Tongue normal. Slurred speech as mentioned before. NECK: Normal to inspection and palpation. No carotid bruit appreciated. RESPIRATORY: No shortness of breath. Breath sounds are equal and normal. No rales or wheezing. EXTREMITIES: Upper extremities show normal pulses down to the radials. Paresis is noted on the right side with considerable difficulty in use of all muscle groups. 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 Lower extremities show paresis in the right lower extremity. Pulses are not felt at the dorsalis pedis. Capillary refill is normal. Hair distribution. LABORATORY DATA: Laboratory data is particularly pertinent for a CT scan of the abdomen which was done because of possible sepsis. A thrombus is noted in a narrowing in the left iliac artery. IMPRESSION: 1. 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 2. Encephalopathy, reason unclear. 3. Leukocytosis. 4. Tobacco use disorder. RECOMMENDATIONS: The recommendations are for compliance with maximal medical management including optimal treatment of hypertension, increase lipids if necessary. Complete abstinence from tobacco is recommended. I do wish for the patient to get an arterial duplex study of the lower extremities to further define the lesions. No urgent intervention is needed in the nonischemic left iliac artery stenosis. Further study and followup is definitely indicated, and I would be happy to see the patient in my office once he is discharged. Thank you for the courtesy of this consultation. DICTATING PHYSICIAN: KATHERYN BALLARD M.D. 1952M 19 PHY#: [id number] ID: [id number] JOB#: [id number] ACCT: [id number] cc:KATHERYN BALLARD M.D. >
[2017-08-06] MEDS: NICOTINE 21 MG/24 HR PATCH.TD24 TD SCH (11:12)
[2017-08-06] MEDS: FAMOTIDINE 20 MG TABLET PO SCH ×2 (11:13→18:27)
[2017-08-06] MEDS: ASPIRIN 325 MG TABLET, ENT COATED PO SCH (11:13)
[2017-08-06] MEDS: AMLODIPINE BESYLATE 5 MG TABLET PO SCH (11:13)
[2017-08-06] MEDS: CLOPIDOGREL BISULFATE 75 MG TABLET PO SCH (11:13)
[2017-08-06] MEDS: CHLORHEXIDINE GLUCONATE 0.12% ORAL RINSE 15 ML UDC MM PRN ×4 (11:17→22:39)
[2017-08-06] MEDS: DOCUSATE SODIUM 100 MG CAPSULE PO SCH ×2 (11:17→18:23)
[2017-08-06] MEDS: ACETAMINOPHEN 325 MG TABLET PO PRN (20:24)
[2017-08-06] MEDS: SIMVASTATIN 40 MG TABLET PO SCH (21:52)
[2017-08-07] MEDS: HEPARIN SOD (PORCINE) 5,000 UNIT/ML 1 ML SYRINGE SUBCUT SCH (05:27)
[2017-08-07] MEDS: GABAPENTIN 100 MG CAPSULE PO SCH (05:27)
--- NOTE | 2017-08-07 07:47 | PDOC DISCHARGE SUMMARY ---
General - Admit/Disc Date/PCP Admission Date/Primary Care Provider: 08/02/17 20:04 MYA MIRANDA NP Discharge Date: 08/06/17 - Discharge Diagnosis (1) Altered mental status, unspecified Is this a current diagnosis for this admission?: Yes Summary: Believed to be secondary to polypharmacy. The patient takes neurontin, mobic, flexeril, and benadryl. Supportive care upon admission. Discontinued mobic, benadryl, and flexeril. Resumed neurontin at half the dose. Within 24 hours the patient was awake and oriented. Discharge planning assisting in sending the patient back to [facility] (2) Hyponatremia Is this a current diagnosis for this admission?: Yes Summary: Resolved. Likely secondary to hydrochlorothiazide. Patient's blood pressure has been relatively controlled. He has been normotensive. (3) Leukocytosis Is this a current diagnosis for this admission?: Yes Summary: Resolved. Unclear etiology. Patient has been afebrile. Chest x-ray unremarkable. Urinalysis unremarkable. (4) Iliac artery thrombosis, left Is this a current diagnosis for this admission?: Yes Summary: Severe stenosis in the left iliac artery seen on CAT scan. Continue full dose aspirin therapy. Will need to follow up with vascular surgery for arterial doppler. No urgent intervention is needed in non-ex ischemic left iliac artery stenosis. - Additional Information Resuscitation Status: Full Code Discharge Diet: As Tolerated Discharge Activity: Activity As Tolerated Prescriptions: Amlodipine Besylate [Norvasc 5 mg Tablet] 5 mg PO DAILY 30 Days #30 tablet Aspirin [Ecotrin 325 mg EC Tablet] 325 mg PO DAILY #30 tabec Gabapentin [Neurontin 100 mg Capsule] 200 mg PO Q8 #90 capsule Home Medications: Acetaminophen [Tylenol Extra Strength 500 mg Tablet] 500 mg PO Q4HP PRN Chlorhexidine Gluconate [Periogard 0.12% Oral Rinse 15 ml] 15 ml MM TIDHS PRN Clopidogrel Bisulfate [Plavix 75 mg Tablet] 75 mg PO DAILY 08/03/17 Cyclobenzaprine HCl [Flexeril 10 mg Tablet] 10 mg PO Q8 08/03/17 Famotidine [Pepcid 20 mg Tablet] 20 mg PO BID 08/03/17 Felodipine [Felodipine ER] 10 mg PO DAILY 08/03/17 Fluoxetine HCl [Prozac 20 mg Capsule] 20 mg PO DAILY 08/03/17 Hydrochlorothiazide [Hydrodiuril 25 mg Tablet] 25 mg PO DAILY 08/03/17 Meloxicam [Mobic] 7.5 mg PO DAILY 08/03/17 Methylphenidate HCl [Methylphenidate ER] 10 mg PO DAILY 08/03/17 Simvastatin [Zocor 40 mg Tablet] 40 mg PO QHS 08/03/17 Amlodipine Besylate [Norvasc 5 mg Tablet] 5 mg PO DAILY 30 Days #30 tablet 08/06 Aspirin [Ecotrin 325 mg EC Tablet] 325 mg PO DAILY #30 tabec 08/06/17 Gabapentin [Neurontin 100 mg Capsule] 200 mg PO Q8 #90 capsule 08/06/17 History of Present Illness History of Present Illness: VAMSI APODACA is a 57 year old male Hospital Course Hospital Course: Vamsi Apodaca is a long-term assisted resident following a CVA. The patient was admitted to [facility] for lethargy and altered mental status. long term staff reported that the patient was very somnolent and minimally responsive. Head CT negative. No intervention was done in the emergency department, yet the patient' s mental status returned to baseline spontaneously. No residual effects. Suspect that his symptoms were related to polypharmacy. While the patient has been at [facility], his Mobic, Flexeril, and Benadryl has been held. Additionally, we have restarted his Neurontin at half his normal dose. The patient has remained awake, alert, and oriented. Of note, the patient has stated multiple times that he is allergic to Lexapro. When he takes the medication he reports experiencing a full body rash. This medication was discontinued. Physical Exam Vital Signs: Temp Pulse Resp BP Pulse Ox 97.7 F 97 18 151/83 H 100 08/06/17 11:54 08/06/17 14:00 08/06/17 11:54 08/06/17 11:54 08/06/17 11:54 Intake & Output 08/05/17 08/06/17 08/07/17 06:59 06:59 06:59 Intake Total 1350 2012 Output Total 1350 475 Balance 0 1537 Weight 75.8 kg 75.7 kg Results Laboratory Results: 08/04/17 09:34 08/04/17 09:34 Impressions: Head CT 08/02/17 00:00 IMPRESSION: Chronic ischemic changes. EVIDENCE OF ACUTE STROKE: NO. Abdomen/Pelvis CT 08/02/17 16:54 IMPRESSION: Atherosclerotic disease. Intramural thrombus with severe stenosis/ occlusion of the left common iliac and left external iliac arteries. Otherwise , no acute findings. Qualifiers - * PATEINT BEING DISCHARGED WITH ANY OF THE FOLLOWING DIAGNOSIS?: No Plan Discharge Plan: Discharge patient back to [facility] Time Spent: Greater than 30 Minutes
[2017-08-07 08:07] VITALS: BP 152/90
[2017-08-07] MEDS: CHLORHEXIDINE GLUCONATE 0.12% ORAL RINSE 15 ML UDC MM PRN (09:39)
[2017-08-07] MEDS: DOCUSATE SODIUM 100 MG CAPSULE PO SCH (09:39)
[2017-08-07] MEDS: AMLODIPINE BESYLATE 5 MG TABLET PO SCH (09:42)
[2017-08-07] MEDS: ASPIRIN 325 MG TABLET, ENT COATED PO SCH (09:42)
[2017-08-07] MEDS: CLOPIDOGREL BISULFATE 75 MG TABLET PO SCH (09:42)
[2017-08-07] MEDS: NICOTINE 21 MG/24 HR PATCH.TD24 TD SCH (09:42)
== END 2017-08-07 11:33 | disposition short-term general hospital (02) ==
LOC: ER 13:28 → EH 20:04 → INTOOBSV 20:04 → 5 08-03 22:25
PROVIDERS: ADMIT Internal Medicine; ATTEND Internal Medicine
DX: R41.82 Altered mental status, unspecified (principal); E87.1 Hypo-osmolality and hyponatremia; D72.829 Elevated white blood cell count, unspecified; I74.5 Embolism and thrombosis of iliac artery; I70.8 Atherosclerosis of other arteries; F17.210 Nicotine dependence, cigarettes, uncomplicated; R10.814 Left lower quadrant abdominal tenderness; I95.89 Other hypotension; R10.9 Unspecified abdominal pain; R53.83 Other fatigue; D47.3 Essential (hemorrhagic) thrombocythemia; I10 Essential (primary) hypertension; E78.5 Hyperlipidemia, unspecified; I73.9 Peripheral vascular disease, unspecified; I69.320 Aphasia following cerebral infarction; G81.91 Hemiplegia, unspecified affecting right dominant side; Z79.899 Other long term (current) drug therapy; Z88.8 Allergy status to other drugs, medicaments and biological substances; Z82.3 Family history of stroke; Z82.49 Family history of ischemic heart disease and other diseases of the circulatory system; Z79.1 Long term (current) use of non-steroidal anti-inflammatories (NSAID); Z86.69 Personal history of other diseases of the nervous system and sense organs
CPT/HCPCS: 93005; 99291; 96360; 96361; 51701; 36415 ×3; 87040; 83605; 83735; 84443; 85025 ×2; 85027; 80048 ×2; 80053; 81001; 84484; 80307; 93925 ×2; 70450; 74177; 93010; G0378 ×7; A9270 ×29; J1644 ×6; J7030

== ENCOUNTER 2017-08-19 16:13 | Emergency (ER) | payer MEDICARE, MEDICAID ==
--- NOTE | 2017-08-19 16:27 | ER Document Report ---
ED General - General Stated Complaint: GENERAL WEAKNESS Time Seen by Provider: 08/19/17 16:19 Notes: Patient had an outpatient carotid ultrasound which showed a clot in the left internal carotid. Patient denies any symptoms at this time. Was sent to the ER for evaluation. Patient had a stroke in the first week of July. Was transferred to [place]. There he was hospitalized for a week and subsequently discharged to a nursing facility for rehab. Has been at the nursing facility at this time but no complications. TRAVEL OUTSIDE OF THE [place] IN LAST 30 DAYS: No - HPI Onset/Duration: Gradual - Related Data Allergies/Adverse Reactions: lisinopril Allergy (Verified 08/02/17 13:42) Angioneurotic Edema Past Medical History - General Information source: Patient, [facility] Records - Social History Smoking Status: Former Smoker Frequency of alcohol use: None Drug Abuse: None Lives with: Longterm Family History: CVA, Hyperlipidemia, Hypertension - Past Medical History Cardiac Medical History: Reports: Hx Hypertension Neurological Medical History: Reports: Hx Cerebrovascular Accident, Hx Seizures Renal/ Medical History: Denies: Hx Peritoneal Dialysis Past Surgical History: Reports: Hx Orthopedic Surgery - Immunizations Hx Pneumococcal Vaccination: 02/16/14 Review of Systems - Review of Systems Constitutional: No symptoms reported EENT: No symptoms reported Cardiovascular: No symptoms reported Respiratory: No symptoms reported Gastrointestinal: No symptoms reported Genitourinary: No symptoms reported Male Genitourinary: No symptoms reported Musculoskeletal: No symptoms reported Skin: No symptoms reported Hematologic/Lymphatic: No symptoms reported Neurological/Psychological: No symptoms reported Physical Exam - Vital signs Vitals: Temp Pulse Resp BP Pulse Ox 97.7 F 110 H 18 161/89 H 95 08/19/17 16:21 08/19/17 16:21 08/19/17 16:21 08/19/17 16:21 08/19/17 16:21 Interpretation: Normal - General General appearance: Appears well, Alert - HEENT Head: Normocephalic, Atraumatic Eyes: Normal Pupils: PERRL - Respiratory Respiratory status: No respiratory distress Chest status: Nontender Breath sounds: Normal Chest palpation: Normal - Cardiovascular Rhythm: Regular Heart sounds: Normal auscultation Murmur: No - Abdominal Inspection: Normal Distension: No distension Bowel sounds: Normal Tenderness: Nontender Organomegaly: No organomegaly - Back Back: Normal, Nontender - Extremities General upper extremity: Normal inspection, Nontender, Normal color, Normal ROM , Normal temperature General lower extremity: Normal inspection, Nontender, Normal color, Normal ROM , Normal temperature, Normal weight bearing. No: Keenan's sign - Neurological Neuro grossly intact: Yes Cognition: Normal Orientation: AAOx4 [place] Coma Scale Eye Opening: Spontaneous [place] Coma Scale Verbal: Oriented [place] Coma Scale Motor: Obeys Commands Anu Coma Scale Total: 15 Speech: Dysarthria, Expressive aphasia Motor strength normal: LUE, LLE. No: RUE, RLE Sensory: Normal - Psychological Associated symptoms: Normal affect, Normal mood - Skin Skin Temperature: Warm Skin Moisture: Dry Skin Color: Normal Course - Re-evaluation Re-evalutation: 08/19/17 19:05 Ultrasound results show clot of the internal carotid. Records were obtained from outside facility showed clot on previous CTA of the neck. Consulted with vascular surgeon in [facility]. Dr. Boswell states there is nothing to do at this time because clot extends all the way up to the brain so it is just regular management with double platelet therapy which patient is on, lifestyle modifications, blood pressure control. Will DC at this time . - Vital Signs Vital signs: Temp Pulse Resp BP Pulse Ox 97.7 F 110 H 18 161/89 H 95 08/19/17 16:21 08/19/17 16:21 08/19/17 16:21 08/19/17 16:21 08/19/17 16:21 Discharge - Discharge Clinical Impression: Internal carotid artery occlusion Qualifiers: Laterality: left Qualified Code(s): I65.22 - Occlusion and stenosis of left carotid artery Condition: Good Disposition: HOME-ASSISTED LIVING Additional Instructions: Please follow-up with your regular doctor for management of your carotid artery stenosis. The vascular surgeon was consulted and there is nothing to do at this time other than continue regular medications.
[2017-08-19 17:50] VITALS: BP 161/89
[2017-08-19] MEDS ORDERED: HYDROCODONE/ACETAMINOPHEN 5-325 MG TABLET PO ONE (19:37)
== END 2017-08-19 21:07 | disposition home health service (06) ==
LOC: ER 16:13
DX: I65.22 Occlusion and stenosis of left carotid artery (principal); R53.1 Weakness; Z87.891 Personal history of nicotine dependence; I10 Essential (primary) hypertension
CPT/HCPCS: 99285; 93306; 93880; A9270

== ENCOUNTER → 2017-08-19 | Outpatient (CLI) | payer MEDICARE, MEDICAID ==
--- NOTE | 2017-08-19 15:50 | RADIOLOGY REPORT (SQ) ---
EXAM DESCRIPTION: CAROTID DOPPLER COMPLETED DATE/TIME: 08/19/2017 2:56 pm REASON FOR STUDY: CAROTID STENOSIS I65.23 OCCLUSION AND STENOSIS OF BILATERAL CAROTID ARTERIES R06. 02 SHORTNESS OF BREATH COMPARISON: CT brain 08/02/2017, 07/25/2017 MRI brain, 07/26/2017 Carotid Doppler 07/20/2015 TECHNIQUE: Grayscale ultrasound, Doppler velocity and spectra, and color Doppler images acquired of the extra-cranial carotid and vertebral arteries. Images stored on PACS. LIMITATIONS: None. FINDINGS: RIGHT CAROTID CCA Velocities: Within normal limits. ICA Velocities Peak systolic 0.82 m/s. End diastolic 0.37 m/s. Proximal ICA/CCA peak systolic ratio 1. Spectra normal. No significant plaque. LEFT CAROTID CCA Velocities: Within normal limits. ICA Velocities No flow is identified at color flow or spectral analysis of the left proximal internal carotid artery . Left external carotid artery is patent. VERTEBRAL ARTERIES: Antegrade flow. Normal waveforms. SUBCLAVIAN ARTERIES: Not evaluated. OTHER: This report was called to Dr. Barron, 1530 hours 08/19/2017. Report was left on the answering machine for Dr. Moore's office. I was unable to contact Dr. Gross who is covering for Dr. Moore, because the [employer] operator has no contact information for Dr. Gross. The vascular lab technologists are attempting to contact the patient. If they reach the patient befo re 5 o'clock, patient will be directed to Dr. Barron's office. Otherwise, the patient would be direct ed to the emergency room for further evaluation. IMPRESSION: Occluded left ICA with hypoechoic clot, possibly acute or subacute. No right carotid bifurcation stenosis. Attempts at calling this report to the attending physician as above. COMMENT: Quality ID #[id number]: Velocity criteria are extrapolated from the diameter data as defined by t he Society of Radiologists in Ultrasound Consensus Conference. Radiology 2003: 229; 340-346. TECHNICAL DOCUMENTATION: JOB ID: [id number] [employer]- All Rights Reserved Reading location - IP/workstation name: [email or web address]
--- NOTE | 2017-08-19 19:18 | XCELERA REPORT ---
[address] [address] Transthoracic Echocardiogram Report Name: VAMSI VILLAFUERTE Age: 57 yrs Gender: Male : 1960 Patient Status: Outpatient Patient Location: Study Date: 08/19/2017 01:13 PM Height: 68 in Weight: 165 lb BSA: 1.9 m2 Procedure: A complete two-dimensional transthoracic echocardiogram was performed (2D, M-mode, spectral and color flow Doppler). The study was technically difficult with many images being suboptimal in quality. Reason For Study: SOB Ordering Physician: ARYA JOHNSON Performed By: Levy Ramos Interpretation Summary The study was technically difficult with many images being suboptimal in quality. Left ventricular systolic function is borderline reduced. The Ejection Fraction estimate is 50-55% There is normal left ventricular wall thickness. The left ventricle is grossly normal size. Doppler measurements suggest pseudonormalized left ventricular relaxation, which is associated with grade II/IV or mild to moderate diastolic dysfunction Regional wall motion abnormalities cannot be excluded due to limited visualization. The right ventricle is grossly normal size. The right ventricular systolic function is normal. The left atrial size is normal. The right atrium is normal in size There is a trace amount of mitral regurgitation There is no mitral valve stenosis. There is no aortic valve stenosis No aortic regurgitation is present. No tricuspid regurgitation. There is no tricuspid stenosis. The pulmonic valve is not well visualized. The aortic root is not well visualized but is probably normal size. The inferior vena cava appeared normal and decreased > 50% with respiration (RAP 5-10 mmHg) There is no pericardial effusion. MMode/2D Measurements & Calculations RVDd: 2.1 cm LVIDd: 4.9 cm FS: 27.6 % Ao root diam: 3.2 cm IVSd: 0.05 cm LVIDs: 3.6 cm EDV(Teich): 114.4 ml LVPWd: 0.76 cm ESV(Teich): 53.4 ml Ao root area: 8.1 cm2 EF(Teich): 53.3 % LA dimension: 2.0 cm Doppler Measurements & Calculations MV E max eliseo: MV P1/2t max eliseo: Ao V2 max: LV V1 max P.3 cm/sec 92.8 cm/sec 150.3 cm/sec 6.4 mmHg MV A max eliseo: MV P1/2t: 40.7 msec Ao max PG: LV V1 max: 86.9 cm/sec 9.0 mmHg 126.9 cm/sec MV E/A: 1.1 MVA(P1/2t): 5.4 cm2 MV dec slope: 668.6 cm/sec2 PA V2 max: 109.9 cm/sec PA max P.8 mmHg Left Ventricle The left ventricle is grossly normal size. There is normal left ventricular wall thickness. Left ventricular systolic function is borderline reduced. The Ejection Fraction estimate is 50-55%. Doppler measurements suggest pseudonormalized left ventricular relaxation, which is associated with grade II/IV or mild to moderate diastolic dysfunction. Regional wall motion abnormalities cannot be excluded due to limited visualization. Right Ventricle The right ventricle is grossly normal size. The right ventricular systolic function is normal. Atria The right atrium is normal in size. The left atrial size is normal. Interarterial septum not well visualized and not well dopplered. Cannot comment on ASD/PFO presence. Mitral Valve The mitral valve leaflets are sclerotic, but show no functional abnormalities. There is no mitral valve stenosis. There is a trace amount of mitral regurgitation. Aortic Valve The aortic valve is grossly normal. There is no aortic valve stenosis. No aortic regurgitation is present. Tricuspid Valve The tricuspid valve is not well visualized, but is grossly normal. There is no tricuspid stenosis. No tricuspid regurgitation. Pulmonic Valve The pulmonic valve is not well visualized. Great Vessels The aortic root is not well visualized but is probably normal size. The inferior vena cava appeared normal and decreased > 50% with respiration (RAP 5-10 mmHg). Effusions There is no pericardial effusion. : ARYA JOHNSON > Sloan Barron
== END ==
LOC: SP 12:48
PROVIDERS: ATTEND Specialist
DX: I65.23 Occlusion and stenosis of bilateral carotid arteries (principal); R06.02 Shortness of breath
CPT/HCPCS: 93306; 93880